=== PATIENT | female | born 1940 | race Caucasian/White ===

== ENCOUNTER 2018-05-25 01:06 | Inpatient (IN) ==
[2018-05-25] MEDS ORDERED: Acetaminophen 500 MG Tablet PO ONE (01:30)
[2018-05-25] MEDS ORDERED: Sod Chloride 0.9% Inj 1,000 ML IV.CONT SCH (01:30)
[2018-05-25 01:42] LABS: Baso # (Auto) 0.1 th/mm3 (0.0-0.2); Baso % (Auto) 1.1 % (0.0-2.0); Eos # (Auto) 0.2 th/mm3 (0.0-0.4); Eos % (Auto) 1.8 % (0.0-4.0); Hematocrit 40.2 % (35.0-46.0); Hemoglobin 13.3 gm/dL (11.6-15.3); Lymph # (Auto) 1.5 th/mm3 (1.0-4.8); Lymph % (Auto) 16.8 % (9.0-44.0); Mean Corpuscular Hemoglobin 31.9 pg (27.0-34.0); Mean Corpuscular Volume 96.9 fL (80.0-100.0); Mean Platelet Volume 10.2 fL (7.0-11.0); Mono # (Auto) 0.5 th/mm3 (0.0-0.9); Mono % (Auto) 5.2 % (0.0-8.0); Neut # (Auto) 6.5 th/mm3 (1.8-7.7); Neut % (Auto) 75.1 % (16.0-70.0); Platelet Count 125 th/mm3 (150-450); Red Blood Count 4.15 mil/mm3 (4.00-5.30); Red Cell Distribution Width 14.9 % (11.6-17.2); White Blood Count 8.8 th/mm3 (4.0-11.0)
[2018-05-25 01:48] LABS: Chloride 106 meq/L (98-107); Potassium 4.2 meq/L (3.5-5.1); Sodium 140 meq/L (136-145)
--- NOTE | 2018-05-25 01:51 | XR ---
EXAM DATE: 05/25/2018 1:29 AM EDT AGE/SEX: 78 years / Female INDICATIONS: Cough with chest pain. CLINICAL DATA: This is the patient's initial encounter. Patient reports that signs and symptoms have been present for 1 day and indicates a pain score of 7/10. MEDICAL/SURGICAL HISTORY: None. None. COMPARISON: No prior exams available for comparison. FINDINGS: The heart size is within normal limits. The lungs appear hyperinflated. A focal consolidation is not seen. No effusion is seen. The hilar structures appear prominent. This could be secondary to pulmonar y hypertension. CONCLUSION: No acute abnormality is seen. The lungs are hyperinflated. Electronically signed by: Delroy Mancini MD 05/25/2018 1:49 AM EDT
[2018-05-25 01:52] LABS: Albumin 3.6 g/dL (3.4-5.0); Anion Gap 7 meq/L (5-15); Calcium 8.3 mg/dL (8.5-10.1); Carbon Dioxide 27.4 meq/L (21.0-32.0); Glucose,Random 101 mg/dL (74-106); Magnesium 2.1 mg/dL (1.5-2.5); Prothrombin Time 10.1 sec (9.8-11.6)
[2018-05-25 01:53] LABS: Blood Urea Nitrogen 20 mg/dL (7-18)
[2018-05-25 01:56] LABS: Alanine Aminotransferase 23 U/L (10-53); Aspartate Aminotransferase 29 U/L (15-37); Glomerular Filtration Rate 70 mL/min (>89)
[2018-05-25 01:57] LABS: Total Protein 6.9 g/dL (6.4-8.2)
[2018-05-25 01:58] LABS: Activated Partial Thrombo Time 21.1 sec (24.3-30.1); Alkaline Phosphatase 94 U/L (45-117)
[2018-05-25] MEDS ORDERED: Sodium Chlor 0.9% Inj 250 ML IV.SIG SCH (02:00)
[2018-05-25 02:01] LABS: Troponin I 0.03 ng/mL (0.02-0.05)
--- NOTE | 2018-05-25 02:01 | ED ---
HPI General Chief Complaint: Chest Pain Stated Complaint: chest pain/coughing all day Time Seen by Provider: 05/25/18 03:39 Source: patient and family (grand daughter -DANIELITO/PRIMO Fong) Mode of arrival: ambulatory Limitations: no limitations History of Present Illness HPI narrative: 78-year-old female presents to the emergency department by private transportation the care of her granddaughter who is her healthcare surrogate and power of trust and estates attorney for evaluation of retrosternal chest pain radiating into her back. Patient has had similar chest pain in the past and has taken nitroglycerin with symptom relief. Patient is followed by cardiology in [place] Dr. Paulino. Patient has undergone cardiac catheterization in the past as recently reportedly is approximately 1 year ago at [facility] altered month at which time she was not considered a procedural or surgical candidate. Patient also has history of thoracic aortic aneurysm which is to the patient and granddaughters understanding not surgical he amenable. Patient also has history of COPD/emphysema. Patient states symptoms began on Thursday as a persistent dry nonproductive cough without associated fever or chills. Chest pain has developed after repetitive forceful coughing. Patient has osteoporosis and rheumatoid arthritis. Patient has pain with movement as well as pain with resting supine. No upper extremity or lower extremity numbness tingling or weakness. Patient denies history of myocardial infarction, hypertension, dyslipidemia, or diabetes; but reports she does not know her history well, reports atrial fibrillation "sounds familiar". Granddaughter reports history of cardiac disease valvular heart disease thoracic aortic aneurysm rheumatoid arthritis dyslipidemia and GERD. No recent long distance travel protracted bedrest. No recent known trauma other than forceful coughing. Patient has prescription for nitroglycerin but did not take any nitroglycerin for her complaint of chest pain at home prior to arrival to the emergency department or since Thursday. Patient does not use supplemental oxygen for her history of COPD/emphysema. Patient recently moved to the area from [place]. complaint: Reports chest pain STEMI Alert: No Onset (ago): day(s) Duration: intermittent and progressively worsening Onset: during exertion (post tussive) Pain location: Reports substernal Severity: severe Severity scale (1-10): 8 Quality: Reports tightness, aching and dull; Denies similar to prior NV Pain radiation: Reports back Relieving factors: nothing (has taken nothing) Exacerbating factors: exertion and other (cough) Context: Denies recent illness, recent surgery, recent immobilization, recent travel, trauma/injury, new medications and history of DVT/PE Associated symptoms: Reports nausea, dyspnea and cough; Denies vomiting, diaphoresis, sense of impending doom, syncope, palpitations, fever and leg swelling Treatments prior to arrival chest pain: Reports none Related Data On Oral Contraceptives: No Home Medications Medication Instructions Recorded Confirmed atorvastatin 20 mg PO DAILY 05/25/18 05/25/18 diltiazem HCl 60 mg PO Q12H 05/25/18 05/25/18 furosemide [Lasix] 20 mg PO DAILY 05/25/18 05/25/18 methotrexate sodium 2.5 mg PO 05/25/18 prednisone 2.5 mg PO DAILY 05/25/18 05/25/18 ranitidine HCl 150 mg PO DAILY 05/25/18 05/25/18 Allergies Allergy/AdvReac Type Severity Reaction Status Date / Time codeine AdvReac Nausea/Vomi Verified 05/25/18 02:03 ting Review of Systems ROS: all other systems reviewed are negative PMFSH History History Provided By: Family Member (Granddaughter thoracic aortic aneurysm) Medical History Medical History Arthritis (Acute) COPD (chronic obstructive pulmonary disease) (Acute) Surgical History Surgical History Hx of appendectomy (Acute) Hx of cholecystectomy (Acute) Hx of tonsillectomy (Acute) Social History Social History Substance History: No History of Abuse Second Hand Smoke Exposure: No Smoking Status: Former smoker Tobacco Type: Cigarettes How Often Do You Have a Drink Containing Alcohol: Never Recent Travel in [facility] within the Last 8 Weeks: No Recent Out of Country Travel within the Last 8 Weeks: No Exam Narrative Exam Narrative: GENERAL: Well-nourished, well-developed patient demonstrating mild work of breathing with O2 saturation 95% on room air. SKIN: Focused skin assessment warm/dry. HEAD: Normocephalic. EYES: No scleral icterus. No injection or drainage. NECK: Supple, trachea midline. No JVD or lymphadenopathy. CARDIOVASCULAR: increased Regular rate and rhythm without murmurs, gallops, or rubs. RESPIRATORY: Breath sounds equal bilaterally few rhonchi no expiratory wheeze no rales occasional accessory muscle use. GASTROINTESTINAL: Abdomen soft, non-tender, nondistended. MUSCULOSKELETAL: No cyanosis, or edema. Radial arterial pulses dorsalis pedis arterial pulses 2+ to palpation. BACK: Nontender without obvious deformity. No CVA tenderness. Course Initial Documented Vital Signs Temperature 98.9 F 05/25/18 01:12 Pulse Rate 106 H 05/25/18 01:12 Respiratory Rate 24 05/25/18 01:12 Blood Pressure 121/71 05/25/18 01:12 Pulse Oximetry 95 05/25/18 01:12 Last Documented Vital Signs Temperature 98.9 F 05/25/18 01:12 Pulse Rate 92 H 05/25/18 04:45 Respiratory Rate 16 05/25/18 04:45 Blood Pressure 117/68 05/25/18 04:45 Pulse Oximetry 99 05/25/18 04:19 Medical Decision Making MDM Narrative Medical decision making narrative: 78-year-old female presents to the emergency department by private transportation for evaluation of chest pain with cough and shortness of breath onset since Thursday with worsening symptoms since 4 PM today. Patient has history of chest pain managed with nitroglycerin. Patient states she did not take nitroglycerin today. Due to increasing pain decided to come to the emergency room. Patient's granddaughter who is the healthcare surrogate and power of trust and estates attorney is at bedside reports patient does have an inoperable ascending thoracic aortic aneurysm. Patient's last procedural intervention by cardiology or vascular or cardiothoracic surgery was approxi-1 year ago at which time she underwent a cardiac catheterization at [facility] time on [facility]. Patient placed on cardiac nurse IV access obtained specimens collected and sent for resulting patient ordered aspirin 162 mg by mouth and 1 sublingual nitroglycerin. Medical records requested. Patient administered SL NTG x 3 (@1 q 5 min)with minimal CP relief 03/12 down to 02/09; patient administered zofran 4 mg iv and morphine sulfate 2mg IV oredered administered at 1 mg IV increments; troponin I 0.03, CK 42, BNP 1102; O2 sat 2L/ M 97% CTA thoracic and abdominal aorta; upon return additional dose morphine sulfate 2 mg IV administered for chest pain and back pain; cxr: copd changes cardiomegaly no lobar infiltrate Patient with chest pain x 2 days w increased sx since 1600 now with cp unresponsive to SL NTG and MS receiving supplemental O2 Lasix and aspirin. CTA pending nitropaste applied to chest wall EKG nsr lvh by voltage and lateral ischemia abnormality, age indeterminate septal QS. @ 4AM CTA thoracic and abdominal aorta resulted by reading radiologist patient does have an ascending aorta aneurysm 4.3 cm no evidence of leak or dissection multiple areas of vessel calcification and coronary vessel calcification. Patient resting comfortably talking with her granddaughter in no apparent distress when queried as to intensity of pain patient states her discomfort is ' better' 6/10 in intensity has chronic pain syndrome with chronic pain 4-5/10 = "mild" in intensity at all times associated with chronic rheumatoid arthritis. Pain is from the right shoulder to the right mid chest. Pain is unaffected by position or deep inspiratory effort. It is now 3 hours will obtain second set of cardiac enzymes and EKG in view of patient's history patient presents with concern for acute coronary syndrome. Patient will be admitted to medicine service with ongoing aspirin therapy nitroglycerin therapy and initiation of heparinization. No complaint of dyspnea. Call placed to medicine service for admission. Medical Screen Exam Complete: Yes Emergency Medical Condition: Yes Differential Diagnosis Differential Diagnosis: Chest pain, ACS, NV, aortic dissection, aortic aneurysm , PE, pneumonia; unlikely pneumothorax Medical Records no prior visits Lab Data Lab results reviewed: Yes I reviewed the patient's lab results. Result diagrams: 05/25/18 01:30 05/25/18 01:30 Lab Results 05/25/18 05/25/18 05/25/18 Range/Units 01:30 01:30 01:30 CBC w Diff Auto diff final WBC 8.8 (4.0-11.0) th/mm3 RBC 4.15 (4.00-5.30) mil/mm3 Hgb 13.3 (11.6-15.3) gm/dL Hct 40.2 (35.0-46.0) % MCV 96.9 (80.0-100.0) fL MCH 31.9 (27.0-34.0) pg MCHC 33.0 (32.0-36.0) % RDW 14.9 (11.6-17.2) % Plt Count 125 L (150-450) th/mm3 MPV 10.2 (7.0-11.0) fL Neut % (Auto) 75.1 H (16.0-70.0) % Lymph % (Auto) 16.8 (9.0-44.0) % Benson % (Auto) 5.2 (0.0-8.0) % Eos % (Auto) 1.8 (0.0-4.0) % Baso % (Auto) 1.1 (0.0-2.0) % Neut # (Auto) 6.5 (1.8-7.7) th/mm3 Lymph # (Auto) 1.5 (1.0-4.8) th/mm3 Benson # (Auto) 0.5 (0.0-0.9) th/mm3 Eos # (Auto) 0.2 (0.0-0.4) th/mm3 Baso # (Auto) 0.1 (0.0-0.2) th/mm3 WBC Differential . Differential Comment . PT 10.1 (9.8-11.6) sec INR 1.0 Ratio APTT 21.1 L (24.3-30.1) sec Sodium (136-145) meq/L Potassium (3.5-5.1) meq/L Chloride (98-107) meq/L Carbon Dioxide (21.0-32.0) meq/L Anion Gap (5-15) meq/L BUN (7-18) mg/dL Creatinine (0.50-1.00) mg/dL Estimated GFR (>89) mL/min Random Glucose (74-106) mg/dL Calcium (8.5-10.1) mg/dL Magnesium (1.5-2.5) mg/dL Total Bilirubin (0.2-1.0) mg/dL AST (15-37) U/L ALT (10-53) U/L Alkaline Phosphatase (45-117) U/L Total Creatine Kinase (26-192) U/L Troponin I (0.02-0.05) ng/mL B-Natriuretic Peptide 1102 H (0-100) pg/mL Total Protein (6.4-8.2) g/dL Albumin (3.4-5.0) g/dL 05/25/18 05/25/18 Range/Units 01:30 04:20 CBC w Diff WBC (4.0-11.0) th/mm3 RBC (4.00-5.30) mil/mm3 Hgb (11.6-15.3) gm/dL Hct (35.0-46.0) % MCV (80.0-100.0) fL MCH (27.0-34.0) pg MCHC (32.0-36.0) % RDW (11.6-17.2) % Plt Count (150-450) th/mm3 MPV (7.0-11.0) fL Neut % (Auto) (16.0-70.0) % Lymph % (Auto) (9.0-44.0) % Benson % (Auto) (0.0-8.0) % Eos % (Auto) (0.0-4.0) % Baso % (Auto) (0.0-2.0) % Neut # (Auto) (1.8-7.7) th/mm3 Lymph # (Auto) (1.0-4.8) th/mm3 Benson # (Auto) (0.0-0.9) th/mm3 Eos # (Auto) (0.0-0.4) th/mm3 Baso # (Auto) (0.0-0.2) th/mm3 WBC Differential Differential Comment PT (9.8-11.6) sec INR Ratio APTT (24.3-30.1) sec Sodium 140 (136-145) meq/L Potassium 4.2 (3.5-5.1) meq/L Chloride 106 (98-107) meq/L Carbon Dioxide 27.4 (21.0-32.0) meq/L Anion Gap 7 (5-15) meq/L BUN 20 H (7-18) mg/dL Creatinine 0.80 (0.50-1.00) mg/dL Estimated GFR 70 L (>89) mL/min Random Glucose 101 (74-106) mg/dL Calcium 8.3 L (8.5-10.1) mg/dL Magnesium 2.1 (1.5-2.5) mg/dL Total Bilirubin 1.0 (0.2-1.0) mg/dL AST 29 (15-37) U/L ALT 23 (10-53) U/L Alkaline Phosphatase 94 (45-117) U/L Total Creatine Kinase 42 36 (26-192) U/L Troponin I 0.03 0.03 (0.02-0.05) ng/mL B-Natriuretic Peptide (0-100) pg/mL Total Protein 6.9 (6.4-8.2) g/dL Albumin 3.6 (3.4-5.0) g/dL Imaging Data Radiologist's impression: Chest X-Ray 05/25/18 01:29 CONCLUSION: No acute abnormality is seen. The lungs are hyperinflated. Thoracic Aorta CT 05/25/18 02:07 CONCLUSION: 1. Scattered atherosclerotic calcification seen throughout. There is a 4.3 cm aneurysm of the ascending aorta. No dissection is seen. 2. There are prominent pectus excavatum deformity deforming the chest and displacing the heart to the left. 3. Calcified masses in the right lung. The likely from granulomatous exposure. 4. Dilatation the biliary system which may reflect a reservoir phenomenon following cholecystectomy. 5. Dilatation of pancreatic duct. Because this is not known. It is likely long- standing as there does appear to be some atrophy of the pancreas. 6. Dilatation the renal collecting systems bilaterally being more prominent on the right to the level the UPJs which could suggest underlying UPJ type obstruction. There is no delayed enhancement of the kidneys. No renal stones are seen. 7. Scattered colonic diverticula. ECG Data EKG Prior to Arrival: No Prior ECG tracings: not available for review Interpretation: EKG normal sinus rhythm rate 93 marked LVH by voltage criterion and ischemic changes laterally with QS septally age-indeterminate interventricular conduction delay, QS laterally age-indeterminate, no acute ST elevation Discharge Plan Discharge Disposition Patient Disposition: 30 Still Patient Discharge Condition Condition: Stable Discharge Details Diagnosis: ACS (acute coronary syndrome), COPD (chronic obstructive pulmonary disease), Elevated brain natriuretic peptide (BNP) level, Thoracic aortic aneurysm without rupture Physicians Team ED Provider: Lisa Perez Primary Care Provider: Donovan Burnette Attending Provider: Shanice Hamilton Other Providers: Yovany Elliott Status ED Status: Admitted Patient
[2018-05-25 02:05] LABS: Creatine Kinase 42 U/L (26-192)
[2018-05-25] MEDS ORDERED: Morphine Inj 4 MG/ML Vial IV.PUSH ONE ×2 (02:07→02:50)
--- NOTE | 2018-05-25 03:56 | CT ---
EXAM DATE: 05/25/2018 2:11 AM EDT AGE/SEX: 78 years / Female INDICATIONS: Cough. Chest pain. Evaluate for dissection. CLINICAL DATA: This is the patient's initial encounter. Patient reports that signs and symptoms have been present for 1 day and indicates a pain score of 9/10. MEDICAL/SURGICAL HISTORY: Chronic obstructive pulmonary disease. Appendectomy. Cholecystectomy. RADIATION DOSE: 6.72 CTDI (mGy) COMPARISON: No prior exams available for comparison. TECHNIQUE: Volumetric scanning was performed using a multi-row detector CT scanner during bolus infu ry of 100 ml Omnipaque 350 (iohexol) nonionic water-soluble contrast as a single exam dose. The d josey was post processed with a variety of visualization algorithms including full volume maximum inten sity projection, multi-planar sliding thin slab reformation, curved planar reformation, and surface r endering techniques. Using automated exposure control and adjustment of the mA and/or kV according t o patient size, radiation dose was kept as low as reasonably achievable to obtain optimal diagnostic quality images. DICOM format image data is available electronically for review and comparison. FINDINGS: Lungs: There is a very mild pectus excavatum deformity. This displaces the heart to the left. There is a 2.4 cm calcified mass seen in the posterior medial right lower lung. There is a smaller calcifie d granuloma in the lateral right base. There are scattered areas of linear suspected atelectasis at [facility] lung bases. Mediastinum: No abnormally enlarged lymph nodes by CT criteria. No axillary or hilar abnormalities a re identified. Abdomen: The liver and spleen are free of focal defects. The spleen is heterogeneous secondary to th e phase of contrast enhancement. The gallbladder is absent. There is dilatation of the central intrah epatic biliary ducts and common bile duct and common bile duct measuring 1.1 cm. The pancreatic duct is dilated measuring 7 mm. There appears to be atrophy of the pancreas around the dilated pancreatic duct. The adrenal glands are normal. There are renal cysts seen bilaterally. There is dilatation of t right collecting system down to the level the UPJ. The ureter does not appear distended. There is fullness of the left collecting system to the level the renal pelvis. Left ureter is not dilated. The re are colonic diverticula especially in the sigmoid region. No free fluid or abdominal masses are id entified. No para-aortic adenopathy is seen. Pelvis: No evidence of free fluid or pelvic mass. No abnormally enlarged inguinal or retroperitoneal lymph nodes are present. The bladder is unremarkable. Thoracic Aorta: Scattered atherosclerotic calcifications are present. There is aneurysmal dilatation of the ascending aorta measuring up to 4.3 cm. The aortic arch and the descending thoracic aorta are normal in size. Mild calcifications are seen at the origins of the great vessels without significant stenosis. Coronary calcifications are present. Abdominal Aorta: There are scattered atherosclerotic calcifications seen. Solitary renal arteries ar e seen bilaterally. Celiac, SMA and LASHAY are patent. No abdominal aortic aneurysm is present. Pelvic Vessels: There are scattered atherosclerotic calcifications seen. The common iliac, internal iliac, external iliac and common femoral arteries are all patent. CONCLUSION: 1. Scattered atherosclerotic calcification seen throughout. There is a 4.3 cm aneurysm of the ascend ing aorta. No dissection is seen. 2. There are prominent pectus excavatum deformity deforming the chest and displacing the heart to th e left. 3. Calcified masses in the right lung. The likely from granulomatous exposure. 4. Dilatation the biliary system which may reflect a reservoir phenomenon following cholecystectomy. 5. Dilatation of pancreatic duct. Because this is not known. It is likely long-standing as there berry s appear to be some atrophy of the pancreas. 6. Dilatation the renal collecting systems bilaterally being more prominent on the right to the leve l the UPJs which could suggest underlying UPJ type obstruction. There is no delayed enhancement of th e kidneys. No renal stones are seen. 7. Scattered colonic diverticula. Electronically signed by: Delroy Mancini MD 05/25/2018 3:54 AM EDT
[2018-05-25] MEDS ORDERED: Acetaminophen 325 MG Tablet PO PRN (04:24)
[2018-05-25] MEDS ORDERED: Bisacodyl 10 MG Supp RECTAL PRN (04:24)
[2018-05-25] MEDS ORDERED: Heparin Drip 25,000 UNIT/250 ML BAG IV.CONT PRN (04:46)
[2018-05-25] MEDS ORDERED: Heparin 10,000 UNITS/10 ML Vial (for IV use) IV.PUSH STA (04:46)
[2018-05-25 04:57] LABS: Troponin I 0.03 ng/mL (0.02-0.05)
[2018-05-25] MEDS ORDERED: Heparin - SQ 10,000 UNITS/ML Vial SQ SCH (05:00)
[2018-05-25] MEDS: dilTIAZem 60 MG Tablet PO SCH ×2 (05:17→18:36)
[2018-05-25 06:38] LABS: Hemoglobin 11.6 gm/dL (11.6-15.3); Mean Corpuscular Volume 96.8 fL (80.0-100.0); Mean Platelet Volume 10.3 fL (7.0-11.0); Platelet Count 113 th/mm3 (150-450); Red Blood Count 3.62 mil/mm3 (4.00-5.30); Red Cell Distribution Width 14.4 % (11.6-17.2); White Blood Count 7.6 th/mm3 (4.0-11.0)
[2018-05-25 06:57] LABS: Troponin I 0.04 ng/mL (0.02-0.05)
--- NOTE | 2018-05-25 07:56 | P.CONCA ---
History of Present Illness Primary Care Provider: Donovan Burnette MD History of Present Illness: 78-year-old female with a past medical history of mild to moderate CAD, moderate severe MR, HTN, COPD who presented with chest pain. The patient states prior to yesterday she was feeling well, but developed a bad cough yesterday. After coughing she developed chest discomfort that lasted all day yesterday. She states her chest continues to feel sore, but much improved. Her chest wall is tender to touch. She quit smoking 2 years ago. Her EKG shows NSR, LVH criteria, IVCD, lateral ST/T wave changes, no previous EKG for comparison. Troponin 0.03, 0.03, 0.04. A chest CTA showed a 4.3 cm ascending thoracic aortic aneurysm. Patient does have records from prior hospitalization in January 2017 from [facility] in [place] with admitted for pneumonia. She had cardiac workup at that time. She was found to have moderate to severe MR, LVH, EF 65-70%. She had [facility] at that time that showed 40% mid RCA stenosis, 40% mid LAD stenosis, 30 -40% first diagonal branch stenosis, 20-30% left circumflex complaints stenosis. Review of Systems All other systems reviewed negative except as stated in HPI [facility] - History History Provided By: Patient, Family Member (Granddaughter thoracic aortic aneurysm), Medical Record - Medical History Medical History: Medical History (Last Updated 05/25/18 @ 07:51 by MAGUI Grant) Aortic aneurysm Arthritis CAD (coronary artery disease) COPD (chronic obstructive pulmonary disease) HTN (hypertension) Mitral regurgitation - Surgical History Surgical History: Surgical History (Last Reviewed 05/25/18 @ 07:55 by Keon Parker) Hx of appendectomy Hx of cholecystectomy Hx of tonsillectomy - Tobacco History Second Hand Smoke Exposure: No Tobacco Use In Past 30 Days: No Smoking Status: Former smoker Tobacco Type: Cigarettes - Alcohol History How Often Do You Have a Drink Containing Alcohol: Never - Substance Use History Substance History: No History of Abuse - Travel History Recent Travel in the [facility] Within the Last 8 Weeks: No Recent Travel Out of the Country Within the Last 8 Weeks: No - Immunization History Tetanus Immunization: Unsure Medications and Allergies Allergies Allergy/AdvReac Type Severity Reaction Status Date / Time codeine AdvReac Nausea/Vomi Verified 05/25/18 02:03 ting Home Medications Medication Instructions Recorded Confirmed Type aspirin 81 mg PO DAILY 05/25/18 05/25/18 History atorvastatin 20 mg PO DAILY 05/25/18 05/25/18 History diltiazem HCl 60 mg PO Q12H 05/25/18 05/25/18 History furosemide [Lasix] 20 mg PO DAILY 05/25/18 05/25/18 History methotrexate sodium 2.5 mg PO 05/25/18 History prednisone 2.5 mg PO DAILY 05/25/18 05/25/18 History ranitidine HCl 150 mg PO DAILY 05/25/18 05/25/18 History Active Medications: Active Medications Acetaminophen (Tylenol) 650 mg PO Q4H PRN PRN Reason: Temp > 100.4 Al Hydroxide/Mg Hydroxide (Milk Of Magnesia Liq) 30 ml PO Q12H PRN PRN Reason: Mild Constipation Atorvastatin Calcium (Lipitor) 20 mg PO DAILY [facility] Bisacodyl (Dulcolax Supp) 10 mg RECTAL DAILY PRN PRN Reason: SEVERE CONSITIPATION Diltiazem HCl (Cardizem) 60 mg PO Q12H [facility] Last Admin: 05/25/18 05:17 Dose: 60 mg Furosemide (Lasix) 20 mg PO DAILY [facility] Heparin Sodium/Dextrose (Heparin/D5w 25,000 U/250 Ml) 25,000 unit in 250 mls @ 0 mls/hr IV.CONT TITRATE PRN; Protocol PRN Reason: Per Protocol Last Admin: 05/25/18 05:19 Dose: 600 units/hr, 6 mls/hr Lactulose (Lactulose Liq) 30 ml PO DAILY PRN PRN Reason: SEVERE CONSITIPATION Ondansetron HCl (Zofran Inj) 4 mg IV.PUSH Q6H PRN PRN Reason: NAUSEA OR VOMITING Prednisone (Deltasone) 2.5 mg PO DAILY [facility] Senna/Docusate Sodium (Shelbi-Colace) 1 tab PO BID [facility] Sennosides (Senokot) 17.2 mg PO Q12H PRN PRN Reason: Moderate Constipation Sodium Chloride (Ns Flush) 2 ml IV.FLUSH UNSCH PRN PRN Reason: FLUSH AFTER USING IV ACCESS Exam Vital signs: Vital Signs 05/25/18 01:12 05/25/18 01:30 05/25/18 01:45 Temperature 98.9 F Pulse Rate 106 H 106 H 105 H Respiratory Rate 24 16 Blood Pressure 121/71 108/74 Pulse Oximetry 95 96 96 05/25/18 01:50 05/25/18 01:55 05/25/18 02:00 Temperature Pulse Rate 103 H 104 H Respiratory Rate 16 16 Blood Pressure 126/71 112/72 Pulse Oximetry 96 98 05/25/18 02:05 05/25/18 02:34 05/25/18 02:40 Temperature Pulse Rate 108 H 95 H Respiratory Rate 16 16 16 Blood Pressure 123/69 123/66 Pulse Oximetry 05/25/18 02:45 05/25/18 04:19 05/25/18 04:45 Temperature Pulse Rate 96 H 94 H 92 H Respiratory Rate 16 16 16 Blood Pressure 119/66 108/69 117/68 Pulse Oximetry 99 05/25/18 05:15 05/25/18 05:52 05/25/18 06:34 Temperature Pulse Rate 90 100 H 90 Respiratory Rate 16 16 Blood Pressure 112/70 101/63 Pulse Oximetry 99 99 Intake & Output 05/24/18 05/25/18 05/25/18 18:59 06:59 18:59 Intake Total 70 / 70 Balance 70 / 70 Weight 106 lb Intake: IV 70 / 70 Narrative: GENERAL: Well-developed well-nourished. In no acute distress. NECK: No carotid bruits. No JVD. CARDIOVASCULAR: Regular rate and rhythm. 3/6 diastolic murmur appreciated at the lower left sternal border. Pectus excavatum. Chest wall pain to palpation. RESPIRATORY: No accessory muscle use. Clear to auscultation. Breath sounds equal bilaterally. MUSCULOSKELETAL: No clubbing or cyanosis. No edema. NEUROLOGICAL: Awake and alert. Normal speech. Results 05/25/18 06:30 05/25/18 01:30 Cardiac Enzymes 05/25/18 05/25/18 05/25/18 Range/Units 01:30 01:30 04:20 AST 29 (15-37) U/L Troponin I 0.03 0.03 (0.02-0.05) ng/mL B-Natriuretic Peptide 1102 H (0-100) pg/mL 05/25/18 Range/Units 06:30 AST (15-37) U/L Troponin I 0.04 (0.02-0.05) ng/mL B-Natriuretic Peptide (0-100) pg/mL Coagulation 05/25/18 05/25/18 Range/Units 01:30 01:30 PT 10.1 (9.8-11.6) sec APTT 21.1 L (24.3-30.1) sec B-Natriuretic Peptide 1102 H (0-100) pg/mL CBC 05/25/18 05/25/18 Range/Units 01:30 06:30 WBC 8.8 7.6 (4.0-11.0) th/mm3 RBC 4.15 3.62 L (4.00-5.30) mil/mm3 Hgb 13.3 11.6 (11.6-15.3) gm/dL Hct 40.2 35.0 (35.0-46.0) % Plt Count 125 L 113 L (150-450) th/mm3 Neut # (Auto) 6.5 (1.8-7.7) th/mm3 Lymph # (Auto) 1.5 (1.0-4.8) th/mm3 [place] # (Auto) 0.5 (0.0-0.9) th/mm3 Eos # (Auto) 0.2 (0.0-0.4) th/mm3 Baso # (Auto) 0.1 (0.0-0.2) th/mm3 Comprehensive Metabolic Panel 05/25/18 Range/Units 01:30 Sodium 140 (136-145) meq/L Potassium 4.2 (3.5-5.1) meq/L Chloride 106 (98-107) meq/L Carbon Dioxide 27.4 (21.0-32.0) meq/L BUN 20 H (7-18) mg/dL Creatinine 0.80 (0.50-1.00) mg/dL Calcium 8.3 L (8.5-10.1) mg/dL AST 29 (15-37) U/L ALT 23 (10-53) U/L Alkaline Phosphatase 94 (45-117) U/L Total Protein 6.9 (6.4-8.2) g/dL Albumin 3.6 (3.4-5.0) g/dL Intake and Output 05/24/18 05/25/18 05/25/18 22:59 06:59 14:59 Intake Total 70 / 70 Balance 70 / 70 Intake: IV 70 / 70 Other: Weight 106 lb - Imaging and Cardiology Imaging: Impressions Chest X-Ray 05/25/18 01:29 CONCLUSION: No acute abnormality is seen. The lungs are hyperinflated. Thoracic Aorta CT 05/25/18 02:07 CONCLUSION: 1. Scattered atherosclerotic calcification seen throughout. There is a 4.3 cm aneurysm of the ascending aorta. No dissection is seen. 2. There are prominent pectus excavatum deformity deforming the chest and displacing the heart to the left. 3. Calcified masses in the right lung. The likely from granulomatous exposure. 4. Dilatation the biliary system which may reflect a reservoir phenomenon following cholecystectomy. 5. Dilatation of pancreatic duct. Because this is not known. It is likely long- standing as there does appear to be some atrophy of the pancreas. 6. Dilatation the renal collecting systems bilaterally being more prominent on the right to the level the UPJs which could suggest underlying UPJ type obstruction. There is no delayed enhancement of the kidneys. No renal stones are seen. 7. Scattered colonic diverticula. Assessment and Plan - Plan 78-year-old female with a past medical history of mild to moderate CAD, moderate severe MR, HTN, COPD who presented with chest pain Chest pain: Seems more noncardiac, possibly pleuritic from coughing or musculoskeletal from costochondritis. Troponins normal, consider discontinuing heparin gtt. Continue aspirin and statin with history of CAD. Check echocardiogram with history of moderate to severe MR, may need left and right rotation for further valve workup, keep n.p.o. Discussed Condition With: Patient with daughter at bedside, RNDr. Shaikh - Attending Attestation unstable angina - chest pain. intermediate troponin. ischemic EKG. severe MR - prominent holosystolic murmur. + fatigue. + SOB. + symtomatic plan for [facility] this am plan for [facility] this am then make decision on potential management decision
[2018-05-25] MEDS ORDERED: predniSONE 5 MG Tablet PO SCH (09:00)
[2018-05-25] MEDS ORDERED: Metoprolol Tartrate 25 MG Tablet PO ONE (09:15)
[2018-05-25] MEDS ORDERED: Chlorhexidine Gluconate 2% 1 Pack (2 Cloths) TOPICAL ONE (09:15)
[2018-05-25] MEDS ORDERED: Sodium Chlor 0.9% Inj 500 ML IV.CONT ONE (09:15)
[2018-05-25] MEDS ORDERED: Heparin/NS PF Inj 1,000 ML ONE (10:35)
--- NOTE | 2018-05-25 10:36 | ECHRPT ---
Indication: CHEST PAIN, MR CONCLUSIONS Normal left ventricular size. Aaqqfnxh-hv-otlmji concentric left ventricular hypertrophy with mid cavitary obstruction due to hyperdynamic function. The left ventricular systolic function is normal with an estimated ejection fraction in the range of 60-65%. No regional wall motion abnormalities are present. Doppler parameters are consistent with impaired left ventricular relaxtion (grade 1 diastolic dysfun ction). The left atrial size is moderately dilated. Mild thickening of the mitral valve leaflets. Calcification of both mitral valve leaflets. Cwmcjkdv-yd-wiwvzx mitral valve regurgitation. Blunted (decreased) systolic pulmonary venous flow is noted which is consistent with hemodynamically significant mitral regurgiation. Mitral annular calcification is present. Mild thickening of the tricuspid valve leaflets. There is mild tricuspid valve regurgitation. Mild pulmonary valve regurgitation. Trileaflet aortic valve. Aortic valve sclerosis is present. Diffuse calcification of the aortic valve. Aium-hs-ylbpllfh aortic valve regurgitation. Eccentric aortic regurgitation jet directed at the mitral valve. No aortic valve stenosis. BP: / HR: Rhythm: Technical Quality: Medications Complications Proc. Components FINDINGS LEFT VENTRICLE Normal left ventricular size. Edbyrpin-dt-wokedw concentric left ventricular hypertrophy with mid cavitary obstruction due to hyperdynamic function. The left ventricular systolic function is normal with an estimated ejection fraction in the range of 60-65%. No regional wall motion abnormalities are present. Doppler parameters are consistent with impaired left ventricular relaxtion (grade 1 diastolic dysfun ction). RIGHT VENTRICLE Normal right ventricular size and systolic function. LEFT ATRIUM The left atrial size is moderately dilated. RIGHT ATRIUM The right atrial size is normal. ATRIAL APPENDAGES Normal left atrial appendage size with no evidence of thrombus formation. ATRIAL SEPTUM Normal atrial septal thickness without atrial level shunting by limited color doppler interrogation. AORTA The aortic root and proximal ascending aorta are normal in size on limited imaging. There is plaque seen in the transverse aorta. MITRAL VALVE Mild thickening of the mitral valve leaflets. Calcification of both mitral valve leaflets. Maonocsx-ax-djrtvx mitral valve regurgitation. Blunted (decreased) systolic pulmonary venous flow is noted which is consistent with hemodynamically significant mitral regurgiation. Mitral annular calcification is present. AORTIC VALVE Trileaflet aortic valve. Aortic valve sclerosis is present. Diffuse calcification of the aortic valve. Otat-xk-berrgfuw aortic valve regurgitation. Eccentric aortic regurgitation jet directed at the mitral valve. No aortic valve stenosis. TRICUSPID VALVE Mild thickening of the tricuspid valve leaflets. There is mild tricuspid valve regurgitation. VESSELS The inferior vena cava is normal in size. PULMONARY VALVE Mild pulmonary valve regurgitation. PERICADIUM No pericardial effusion. William Shaikh MD, FACC (Electronically Signed) Final Date:25 May 2018 10:35 Amended: 25 May 2018 11:22
[2018-05-25] MEDS ORDERED: fentaNYL Citrate Inj 100 MCG/2 ML Ampul ONE (10:51)
--- NOTE | 2018-05-25 11:25 | CATHPROC ---
[employer] HIS Report Study Information Study Number Admission Scheduled Start Study Start [id number] May 25 2018 4:24AM 05/25/2018 May 25 2018 10:27AM [place] Service Cardiac Catheterization Admit Source Facility Department Other [facility] - Adobe Layer Helper Physician and Clinical Staff Initial William Lin Country Singer Ryan Daley,RN Recorder Leeroy Mc,RAFAEL Recorder Student, VEST TAILOR/RT(R) Scrub Sorin Malone RCIS(BS) Procedures Performed Procedure Location (Site) Vessel Name Angiogram LV LV Ventricle Coronary Angiograms LCA Left Coronary Coronary Angiograms RCA Right Coronary Equipment Time Events Director Description Size Mfg Part Number Used/Scraped ARROW INTERNATIONAL CATHETER, FR.7 BALLOON [id number] 10:32 FR 7 Used INC. WEDGE PRESSURE *[id number] TRANSDUCER, TRDeNovaMedAVE [id number] 10:32 RUGGIERO RATLIFF * Used W/STOCKCOCK *[id number] 538-422 *[id number] 538-421 *[id number] 538-453S *[id number] 10:32 Dashlane BLANKET,WARM AIR CCL * Used *[id number] 10:32 Dashlane PACK, CCL CUSTOM * Used *[id number] 10:32 iStoryTime PACER PEN, SKIN DUAL W/ RULER * Used *[id number] 10:32 P2P-Next WIRE, 3MMJ .035 180CM 180CM Used *[id number] 10:32 NAMIC MANIFOLD, 2 PORT * Used *[id number] 10:32 NAMIC MANIFOLD, 4 PORT * Used *[id number] 10:32 NYCOMED OMNIPAQUE, 350 MG, 150ML 150ML [id number] Used [id number] 10:51 TERUMO MEDICAL SHEATH, FR4 TERUMO (10CM) FR 4 Used *[id number] 10:32 TERUMO MEDICAL SHEATH, FR7 TERUMO (10CM) FR 7 Used *[id number] History: Allergies Allergy Reaction No Known Allergies codeine Nausea/Vomiting History: Risk Factors Family History of Hypertension Dyslipidemia Previous TN Previous Heart Failure Premature CAD Yes No Yes No No Prior Valve Prior PCI Prior CABG Surgery No No No Cerebrovascular Peripheral Artery Chronic Lung On Dialysis Diabetes Disease Disease Disease No No No Yes No History: Stress Tests Stress or Imaging Studies Performed No History: Other Current Smoker Method Quit Packs a Day Years Used Pack Years No Cigarettes 3 Years Ago 1 25 25 Labs Hgb (g/dl) Hct (%) WBC (l/cumm) Platelets (thousands) 11.60-17.00 35.00-51.00 4.00-11.00 150.00-450.00 11.6 35 7.6 113 Glucose (mg/dl) BUN (mg/dl) Creatinine (mg/dl) BUN:Creatinine (1:x) 74.00-106.00 7.00-18.00 0.50-1.30 10.00-20.00 101 20 0.8 25 Na (meq/l) K (meq/l) 136.00-145.00 3.50-5.10 140 4.2 INR (PTT:PT) 0.90-1.10 1 Troponin I (ng/ml) CPK-MB (ng/ML) 0.02-0.05 0.50-3.60 0.04 Not Drawn Medication Medication Total Dose (Bolus/Oral) Medication Total Dosage/Unit 1% XYLOCAINE 10 mL FENTANYL 25 mcg Medications (Bolus/Oral) Medication Time Given Dosage/Unit Administered By Reason 05/25/2018 10:48:11 1% XYLOCAINE 10 mL William Shaikh AM 10 mL 1% XYLOCAINE given in lab by William Shaikh in Right Groin via Subcutaneous. Ordered by William Shaikh. 05/25/2018 10:52:57 FENTANYL 25 mcg Ryan Daley AM 25 mcg FENTANYL given in lab by Ryan Daley RN in Right Antecubital via Peripheral IV. Ordered by William Shaikh. Initial Case Assessment Cardiovascular Edema Present Skin color Skin None Normal Warm Dry Circulatory - Right Pulses Dorsalis Pedis Femoral 2 2 Scale (0,1,2,3,4,d) Circulatory - Left Pulses Dorsalis Pedis Femoral 2 2 Scale (0,1,2,3,4,d) Neurological State Oriented to time-place- Alert Moves all extremities person Final Case Assessment Cardiovascular HR NIBP 68 99/63 Edema Present Skin color Skin None Normal Warm Dry Circulatory - Right Pulses Dorsalis Pedis Femoral 2 2 Scale (0,1,2,3,4,d) Circulatory - Left Pulses Dorsalis Pedis Femoral 2 2 Scale (0,1,2,3,4,d) Neurological State Oriented to time-place- Alert Moves all extremities person Respiration - General Respiration Rate SpO2 (%) (B/min) 20 95 Chronological Log Time Study Chronological Log 10:28:19 Patient Name, D.O.B, / Armband Verified By R.N. 10:28:20 Patient arrived via Bed. 10:32:00 Patient has been NPO for More than 6Hrs. 10:32:01 Skin Breakdown- none per pt 10:32:14 Patient Warmer Placed on the Table. 10:32:15 [place] Prominences Protected Assessment: Initial Case, Edema=None, Color=Normal, Skin = Warm, Dry Right Pulses: Jose Ped=2, Femoral=2 10:32:19 Left Pulses: Jose Ped=2, Femoral=2 Neurological: State=Alert, Ox3, MCCLAIN 10:33:33 PIV R WRIST #22 w NS at O site WNL Vitals capture started with the following parameters, Patient=Adult, Interval=5 min, Initial Pr lpihbn=916 mmHg, 10:38:52 Deflation Rate=5 mmHg, Cuff placed on Left Arm 10:39:13 Bilateral groins prepped with 2% chlorhexidine, and draped after a 3 minute waiting time. 10:39:29 HR=66 bpm, NIBP=83/51 mmhg, SpO2=94.0 %, Resp=20 B/min, Pain=0, Hipolito=10, Funk=2 10:44:57 HR=63 bpm, NIBP=87/53 mmhg, SpO2=96.0 %, Resp=19 B/min, Pain=0, Hipolito=10, Funk=2 10:45:04 Pressure channel 1 zeroed. Time Out. Correct patient, correct procedure, correct physician, labs, allergies, and equipment verified with ammunition assembly ii laborer 10:47:32 team present. Fire risk assesment completed (see hard stop sheet for coding). Time Out Conc urred by MD and individual staff in procedure. 10:48:10 Case Start 10:48:11 10 mL 1% XYLOCAINE given in lab by William Shaikh in Right Groin via Subcutaneous. Ordered by William Shaikh. 10:49:17 HR=67 bpm, NIBP=90/56 mmhg, SpO2=93.0 %, Resp=15 B/min, Pain=0, Hipolito=10, Funk=2 10:50:16 Access site was Right Femoral Artery. 10:50:22 A SHEATH, FR4 TERUMO (10CM) FR 4 was advanced into the Fem Art (right) using the Percutaneo us technique. 10:52:57 25 mcg FENTANYL given in lab by Ryan Daley, RN in Right Antecubital via Peripheral IV. O rdered by William Shaikh. 10:53:05 Access site was Right Femoral Vein. 10:53:17 A SHEATH, FR7 TERUMO (10CM) FR 7 was advanced into the Fem Vein (right) using the Percutane ous technique. A CATHETER, FR.7 BALLOON WEDGE PRESSURE FR 7 was advanced over a wire. OMNIPAQUE, 350 MG, 150ML 150ML 10:53:44 was used for injections. 10:54:18 HR=65 bpm, NIBP=92/54 mmhg, SpO2=95.0 %, Resp=24 B/min, Pain=0, Hipolito=10, Funk=2 Recorded Pressure: RA, HR=66, Condition=Condition 1 10:54:24 (Right Atrium) RA 17/15/15 10:55:19 Pressure channel 1 zeroed. Recorded Pressure: RV, HR=67, Condition=Condition 1 10:55:57 (Right Ventricle) RV 43/7/13 Recorded Pressure: PCW, HR=69, Condition=Condition 1 10:57:06 (Pulmonary Capillary Wedge) PCW 38/41/27 10:57:19 Saturation: Site=Ao (Aorta) , O2=89.7 %, Hgb=11.6 gm/dl, Condition=Condition 1. Used in chace culation. 10:57:55 Saturation: Site=PA (Pulmonary Artery) , O2=52.7 %, Hgb=11.6 gm/dl, Condition=Condition 1. Used in calculation. 10:58:12 [place] Rob[place] Catheter Removed 10:59:19 HR=67 bpm, NIBP=97/60 mmhg, SpO2=89.0 %, Resp=26 B/min, Pain=0, Hipolito=10, Funk=2 A JL 5.0 INFINITI CATHETER FR 4 was advanced over a wire. OMNIPAQUE, 350 MG, 150ML 150ML was us ed for 10:59:58 injections. 11:00:31 The LCA was injected and visualized at various angles. OMNIPAQUE, 350 MG, 150ML 150ML used . After removing the current catheter a JR 4.0 INFINITI CATHETER FR 4 was advanced over a WIRE, 3 MMJ .035 180CM 11:01:28 180CM. 11:02:59 The RCA was injected and visualized at various angles. OMNIPAQUE, 350 MG, 150ML 150ML used . After removing the current catheter a PIGTAIL ANG. INFINITI CATHETER FR 4 was advanced over a [place], 3MMJ .035 11:04:04 180CM 180CM. 11:04:20 HR=69 bpm, NIBP=93/59 mmhg, SpO2=93.0 %, Resp=23 B/min, Pain=0, Hipolito=10, Funk=2 Recorded Pressure: LV, HR=93, Condition=Condition 1 11:07:30 (Left Ventricle) LV 151/24/40 11:09:22 HR=71 bpm, NIBP=94/51 mmhg, SpO2=93.0 %, Resp=25 B/min, Pain=0, Hipolito=10, Funk=2 11:09:32 The LV was injected at 12 cc/sec for a total of 36. OMNIPAQUE, 350 MG, 150ML 150ML used. Recorded Pressure: LV, Ao, VH=182, Condition=Condition 1 11:10:35 (Left Ventricle) LV 152/43/57, (Aorta) Ao 87/57/73 11:11:29 Wire removed 11:11:30 Catheter was removed 11:11:33 Case End (Physician broke scrub) 11:11:42 Catheter(s) removed without difficulty 11:12:45 Sheath removed; pressure applied to access site. 11:12:58 No case complications noted. 11:12:59 Cine recording checked. 11:13:02 Bedside Report will be given. 11:13:08 A Left and Right Heart Cath was performed. 11:14:21 HR=68 bpm, NIBP=99/63 mmhg, SpO2=93.0 %, Resp=27 B/min, Pain=0, Hipolito=10, Funk=2 Assessment: Final Case, HR=68 BPM, NIBP=99/63 mmhg, Edema=None, Color=Normal, Skin = Warm, Dry Right Pulses: Jose Ped=2, Femoral=2 11:14:31 Left Pulses: Jose Ped=2, Femoral=2 Neurological: State=Alert, Ox3, MCCLAIN Respiration: Resp=20 B/min, SpO2=95 % 11:15:42 Venous Sheath removed; pressure applied to access site. 11:19:22 HR=67 bpm, NIBP=99/60 mmhg, SpO2=90.0 %, Resp=22 B/min, Pain=0, Hipolito=10, Funk=2 11:22:35 Vitals capture stopped. 11:25:10 [facility] - Contrast Media Used In Study Contrast Total Opened (mL) Total Used (mL) Total Wasted (mL) Omnipaque 100 100 0 End Study - Maximum Contrast Load Max Contrast Load (mL) 300.0 End Study - Radiation Exposure Fluoro Time (minutes) 6.0 End Study - Sheaths Sheaths Pulled By Sheath Hold Time (min) Sorin Malone End Study - Patient Disposition Complications Transferred To Interventional Outcome No Critical Care Bed No attempt made
[2018-05-25] MEDS ORDERED: Bacitracin Oint 0.9 GM Packet TOPICAL ONE (11:26)
[2018-05-25] MEDS ORDERED: Naloxone Inj 0.4 MG/ML Vial IV.PUSH PRN (11:32)
[2018-05-25] MEDS ORDERED: Morphine Sulfate Inj 2 MG/ML Vial IV.PUSH PRN (11:32)
[2018-05-25] MEDS ORDERED: Morphine Inj 4 MG/ML Vial IV.PUSH PRN ×3 (11:32)
--- NOTE | 2018-05-25 11:34 | P.HPIM ---
History of Present Illness Service: [facility] Primary Care Physician: Donovan Burnette MD Chief Complaint: CHEST PAIN History of Present Illness: Patient is a 78-year-old female who presented to the emergency department at [place] via private transport under the care of her granddaughter who is her healthcare surrogate and power of consumer attorney for evaluation of retrosternal chest pain radiating into her back. Patient had similar chest pain in the past and had taken nitroglycerin with symptom relief. Patient's primary wet press tender is Dr. Boo can [facility]. Patient previously undergone cardiac catheterization [facility]. Patient also has a known history of thoracic aortic aneurysm which is nonsurgical at this time. Has a history of COPD and emphysema also. Symptoms began on Thursday night persisted nonproductive cough without any associated fever chills had some chest pain after forceful coughing. Patient has history of osteoporosis and rheumatoid arthritis also. Has had pain with movement as well as pain with resting. Granddaughter report history of cardiac valvular heart disease as well as thoracic aortic aneurysm and rheumatoid arthritis and dyslipidemia and GERD. Denies any recent trauma other than coughing. Patient has nitroglycerin at home but did not take it for chest pain prior to arrival patient does not use oxygen at home for her COPD emphysema. Patient recently moved to the area from [facility]. Her chest pain was 8 out of 10 and was tightness and aching and dullness with intermittent and progressive worsening of the chest pain. Patient denies any recent illness, recent surgery, recent [place] home or new injury. Denies any new medications. Patient denies any history of DVT or pulmonary embolism. Has had some nausea on and off denies any dyspnea and some cough denies any vomiting denies any diaphoresis or impending doom denies any syncope or palpitation denies any fever or leg swelling denies any treatment prior to arrival. Has been seen by cardiology. Already had a HAYLEY, I believe which showed severe mitral valve issues. Troponins have remained negative here. Family history is unobtainable from the patient unfortunately Inpatient Certification: I certify that the inpatient services were ordered in accordance with Medicare regulations governing the order. This includes certification that hospital inpatient services are reasonable and necessary and in the case of services not specified as inpatient-only under 42 CFR 419.22(n), that they are appropriately provided as inpatient services in accordance to with the 2-midnight benchmark under 43 CFR 412.3(e) Estimated Total Length of Stay (Days): 2 Plans for Post Hospital Care: Not yet determined Review of Systems All other systems reviewed negative except as stated in [facility] - History History Provided By: Patient, Family Member (Granddaughter thoracic aortic aneurysm), Medical Record - Medical History Medical History: Medical History (Last Reviewed 05/25/18 @ 07:55 by Keon Parker) Aortic aneurysm Arthritis CAD (coronary artery disease) COPD (chronic obstructive pulmonary disease) HTN (hypertension) Mitral regurgitation - Surgical History Surgical History: Surgical History (Last Reviewed 05/25/18 @ 07:55 by Keon Parker) Hx of appendectomy Hx of cholecystectomy Hx of tonsillectomy - Social History I have reviewed the patient's Social History: Yes - Tobacco History Second Hand Smoke Exposure: No Tobacco Use In Past 30 Days: No Smoking Status: Former smoker Tobacco Type: Cigarettes - Alcohol History How Often Do You Have a Drink Containing Alcohol: Never - Substance Use History Substance History: No History of Abuse - Travel History History of Recent Travel: No Recent Travel in the [place] Within the Last 8 Weeks: No Recent Travel Out of the Country Within the Last 8 Weeks: No - Immunization History Tetanus Immunization: Unsure Medications and Allergies Active Medications: Active Medications Acetaminophen (Tylenol) 650 mg PO Q4H PRN PRN Reason: Temp > 100.4 Al Hydroxide/Mg Hydroxide (Milk Of Magnjez Liq) 30 ml PO Q12H PRN PRN Reason: Mild Constipation Atorvastatin Calcium (Lipitor) 20 mg PO DAILY [facility] Bisacodyl (Dulcolax Supp) 10 mg RECTAL DAILY PRN PRN Reason: SEVERE CONSITIPATION Diltiazem HCl (Cardizem) 60 mg PO Q12H [facility] Last Admin: 05/25/18 05:17 Dose: 60 mg Furosemide (Lasix) 20 mg PO DAILY [facility] Heparin Sodium/Dextrose (Heparin/D5w 25,000 U/250 Ml) 25,000 unit in 250 mls @ 0 mls/hr IV.CONT TITRATE PRN; Protocol PRN Reason: Per Protocol Last Titration: 05/25/18 07:45 Dose: 600 units/hr, 6 mls/hr Sodium Chloride (Ns Inj) 500 mls @ 30 mls/hr IV.CONT .[id number] Stop: 05/26/18 01:54 Lactulose (Lactulose Liq) 30 ml PO DAILY PRN PRN Reason: SEVERE CONSITIPATION Ondansetron HCl (Zofran Inj) 4 mg IV.PUSH Q6H PRN PRN Reason: NAUSEA OR VOMITING Prednisone (Deltasone) 2.5 mg PO DAILY [facility] Senna/Docusate Sodium (Shelbi-Colace) 1 tab PO BID [facility] Sennosides (Senokot) 17.2 mg PO Q12H PRN PRN Reason: Moderate Constipation Sodium Chloride (Ns Flush) 2 ml IV.FLUSH UNSCH PRN PRN Reason: FLUSH AFTER USING IV ACCESS Allergies Allergy/AdvReac Type Severity Reaction Status Date / Time codeine AdvReac Nausea/Vomi Verified 05/25/18 02:03 ting Home Medications Medication Instructions Recorded Confirmed Type aspirin 81 mg PO DAILY 05/25/18 05/25/18 History atorvastatin 20 mg PO DAILY 05/25/18 05/25/18 History diltiazem HCl 60 mg PO Q12H 05/25/18 05/25/18 History furosemide [Lasix] 20 mg PO DAILY 05/25/18 05/25/18 History methotrexate sodium 2.5 mg PO 05/25/18 History prednisone 2.5 mg PO DAILY 05/25/18 05/25/18 History ranitidine HCl 150 mg PO DAILY 05/25/18 05/25/18 History Exam Vital signs: Vital Signs 05/25/18 01:12 05/25/18 01:30 05/25/18 01:45 Temperature 98.9 F Pulse Rate 106 H 106 H 105 H Respiratory Rate 24 16 Blood Pressure 121/71 108/74 Pulse Oximetry 95 96 96 05/25/18 01:50 05/25/18 01:55 05/25/18 02:00 Temperature Pulse Rate 103 H 104 H Respiratory Rate 16 16 Blood Pressure 126/71 112/72 Pulse Oximetry 96 98 05/25/18 02:05 05/25/18 02:34 05/25/18 02:40 Temperature Pulse Rate 108 H 95 H Respiratory Rate 16 16 16 Blood Pressure 123/69 123/66 Pulse Oximetry 05/25/18 02:45 05/25/18 04:19 05/25/18 04:45 Temperature Pulse Rate 96 H 94 H 92 H Respiratory Rate 16 16 16 Blood Pressure 119/66 108/69 117/68 Pulse Oximetry 99 05/25/18 05:15 05/25/18 05:52 05/25/18 06:34 Temperature Pulse Rate 90 100 H 90 Respiratory Rate 16 16 Blood Pressure 112/70 101/63 Pulse Oximetry 99 99 05/25/18 07:40 Temperature Pulse Rate 92 H Respiratory Rate 16 Blood Pressure 108/65 Pulse Oximetry 98 Intake & Output 05/24/18 05/25/18 05/25/18 18:59 06:59 18:59 Intake Total 70 / 13.7 / 13.7 Balance 70 / 70 13.7 / 13.7 Weight 48.081 kg Intake: IV 70 / 70 13.7 / 13.7 Heparin/D5W 25,000 U/250 mL 25, 13.7 / 13.7 000 unit In 250 ml @ Per Protocol IV.CONT TITRATE PRN Rx #:[id number] Narrative: GENERAL: Awake and alert some confusion after just having propofol for her HAYLEY SKIN: Warm and dry. HEAD: Atraumatic. Normocephalic. EYES: Pupils equal and round. No scleral icterus. No injection or drainage. EOMI ENT: No nasal bleeding or discharge. Mucous membranes pink and moist. Tongue is midline NECK: Trachea midline. No JVD. Supple CARDIOVASCULAR: Regular rate and rhythm. 3 out of 6 systolic ejection murmur RESPIRATORY: No accessory muscle use. Clear to auscultation. Breath sounds equal bilaterally. GASTROINTESTINAL: Abdomen soft, non-tender, nondistended. Hepatic and splenic margins not palpable. MUSCULOSKELETAL: Extremities without clubbing, cyanosis, or edema. No obvious deformities. NEUROLOGICAL: Awake and alert. No obvious cranial nerve deficits. Motor grossly within normal limits. Five out of 5 muscle strength in the arms and legs. Normal speech. PSYCHIATRIC: INAppropriate mood and affect; insight and judgment ABnormal. Patient had recently had propofol Results - Labs CBC & Chem 7: 05/25/18 06:30 05/25/18 01:30 Labs: Short CBC 05/25/18 05/25/18 Range/Units 01:30 06:30 WBC 8.8 7.6 (4.0-11.0) th/mm3 Hgb 13.3 11.6 (11.6-15.3) gm/dL Hct 40.2 35.0 (35.0-46.0) % Plt Count 125 L 113 L (150-450) th/mm3 BMP 05/25/18 01:30 Sodium 140 Potassium 4.2 Chloride 106 Carbon Dioxide 27.4 BUN 20 H Creatinine 0.80 Calcium 8.3 L Cardiac Enzymes 05/25/18 05/25/18 05/25/18 Range/Units 01:30 04:20 06:30 Total Creatine Kinase 42 36 34 (26-192) U/L Troponin I 0.03 0.03 0.04 (0.02-0.05) ng/mL Liver Function 05/25/18 Range/Units 01:30 Total Bilirubin 1.0 (0.2-1.0) mg/dL AST 29 (15-37) U/L ALT 23 (10-53) U/L Alkaline Phosphatase 94 (45-117) U/L Albumin 3.6 (3.4-5.0) g/dL - Imaging Impressions Chest X-Ray 05/25/18 01:29 CONCLUSION: No acute abnormality is seen. The lungs are hyperinflated. Thoracic Aorta CT 05/25/18 02:07 CONCLUSION: 1. Scattered atherosclerotic calcification seen throughout. There is a 4.3 cm aneurysm of the ascending aorta. No dissection is seen. 2. There are prominent pectus excavatum deformity deforming the chest and displacing the heart to the left. 3. Calcified masses in the right lung. The likely from granulomatous exposure. 4. Dilatation the biliary system which may reflect a reservoir phenomenon following cholecystectomy. 5. Dilatation of pancreatic duct. Because this is not known. It is likely long- standing as there does appear to be some atrophy of the pancreas. 6. Dilatation the renal collecting systems bilaterally being more prominent on the right to the level the UPJs which could suggest underlying UPJ type obstruction. There is no delayed enhancement of the kidneys. No renal stones are seen. 7. Scattered colonic diverticula. Caprini VTE Risk Assessment Caprini VTE Risk Assessment: Moderate/High Risk (score >= 2) Caprini Risk Assessment Model: Point Value = 1 Point Value = 2 Point Value = 3 Point Value = 5 Age 41-60 Minor surgery BMI > 25 kg/m2 Swollen legs Varicose veins or History of unexplained or recurrent spontaneous Oral contraceptives or hormone replacement Sepsis (< 1 month) Serious lung disease, including pneumonia (< 1 month) Abnormal pulmonary function Acute myocardial infarction Congestive heart failure (< 1 month) History of inflammatory bowel disease Medical patient at bed rest Age 61-74 Arthroscopic surgery Major open surgery (> 45 min) Laparoscopic surgery (> 45 min) Malignancy Confined to bed (> 72 hours) Immobilizing plaster cast Central venous access Age >= 75 History of VTE Family history of VTE Factor V Leiden Prothrombin 20602A Lupus anticoagulant Anticardiolipin antibodies Elevated serum homocysteine Heparin-induced thrombocytopenia Other congenital or acquired thrombophilia Stroke (< 1 month) Elective arthroplasty Hip, pelvis, or leg fracture Acute spinal cord injury (< 1 month) Prophylaxis Regimen: Total Risk Factor Score Risk Level Prophylaxis Regimen 0-1 Low Early ambulation 2 Moderate Order ONE of the following: *Sequential Compression Device (SCD) *Heparin 5000 units SQ BID 3-4 Higher Order ONE of the following medications: *Heparin 5000 units SQ TID *Enoxaparin/Lovenox 40 mg SQ daily (WT < 150 kg, CrCl > 30 mL/min) *Enoxaparin/Lovenox 30 mg SQ daily (WT < 150 kg, CrCl > 10-29 mL/min) *Enoxaparin/Lovenox 30 mg SQ BID (WT < 150 kg, CrCl > 30 mL/min) AND/OR *Sequential Compression Device (SCD) 5 or more Highest Order ONE of the following medications: *Heparin 5000 units SQ TID (Preferred with Epidurals) *Enoxaparin/Lovenox 40 mg SQ daily (WT < 150 kg, CrCl > 30 mL/min) *Enoxaparin/Lovenox 30 mg SQ daily (WT < 150 kg, CrCl > 10-29 mL/min) *Enoxaparin/Lovenox 30 mg SQ BID (WT < 150 kg, CrCl > 30 mL/min) AND *Sequential Compression Device (SCD) Assessment and Plan - Plan Chest pain atypical versus typical To go for cardiac catheterization today Had previously undergone a HAYLEY already today regarding the mitral valve Troponins so far remain negative Severe mitral regurgitation-status post HAYLEY Scheduled for cardiac catheterization today-SP CARDIAC CATH- REPORT NOT AVAILABLE History of COPD Elevated BNP Chronic thoracic aortic aneurysm without rupture at 4.3 cm History of mild to moderate coronary artery disease and moderate severe MR and hypertension and COPD Hyperlipidemia continue on Lipitor Hypertension continue on diltiazem and Lasix Rheumatoid arthritis on chronic methotrexate and prednisone GERD on ranitidine daily Cardiovascular surgery has been consulted for evaluation of the severe mitral regurgitation DW [facility] DR LIN- NEEDS TO BE OFF METHOTREXATE AND PREDNISONE RECOMMEND THEY BOTH BE STOPPED AT THIS TIME WILL NEED SURGERY AN OUTPATIENT REGARDING VALVE Code Status: Full code at this time Discussed Condition With: RN and patient Discharge Planning: Pending cardiac clearance
--- NOTE | 2018-05-25 11:51 | P.PCN ---
Date of procedure: 05/25/18 Pre-op diagnosis: Mitral regurgitation, preoperative evaluation Procedure: Procedure performed: 1. Fluoroscopy with interpretation 2. Coronary angiography 3. Right heart catheterization 4. Left heart catheterization 5. Left ventriculography Methods: Risks benefits, alternatives were discussed with the patient. Patient understood consented to the procedure. Patient was brought into the catheterization lab place in the catheterization table. Right groin was prepped and draped in sterile fashion. Right groin was anesthetized with 2% lidocaine. Right femoral vein was accessed and a 7 Somali 11 cm sheath was placed without difficulty. Right femoral artery was accessed and a 4 Somali 11 cm sheath was placed without difficulty. Left heart catheterization: Intraventricular hemodynamics measured at 152/43 mmHg. There was a 80 mmHg trans-ventricular pullback gradient across the mid cavitary obstruction due to hypertrophy with hyperdynamic LV function. Left ventriculography: 4 Somali angled pigtail catheter was advanced into the left ventricle apex. 36 cc contrast injection was administered. Left ventricular ejection fraction 75% with mid cavitary obstruction. There was 4+ mitral regurgitation with severely dilated left atrium and pulmonary vein visualization. Left atrial appendage was also visualized. Right heart catheterization: 1. Right atrium 17 mmHg 2. Right ventricle 43/7 mmHg 3. Pulmonary cavity wedge pressure 27 mmHg 4. Cardiac output 3.3 L/min 5. Cardiac index 2.1 L/min/m Coronary angiography: 1. Left main coronary is angiographically normal 2. Left anterior descending coronary has mild luminal irregularities throughout the mid segment. Diagonal branch has moderate disease estimated at 40%. 3. Left circumflex has minor luminal irregularities. 4. Right Cordis dominant vessel gives rise to the posterior descending branch. Right coronary has mild luminal irregularities. Conclusions: 1. Severe mitral regurgitation 2. Hyperdynamic left ventricular systolic function 3. Mild nonobstructive coronary disease Plan: We will consult cardiothoracic surgery. We will determine if patient may be candidate for minimally invasive approach to mitral valve repair or replacement.
[2018-05-25] MEDS ORDERED: Iohexol 350 MG/ML 100 ML Vial (for Cath Lab) IVCONTRAST ONE (12:29)
[2018-05-25 13:42] LABS: Troponin I 0.09 ng/mL (0.02-0.05)
--- NOTE | 2018-05-25 14:58 | P.PNCV ---
- Note Subjective/Hospital Course: pt seen and evaluated / full consult to follow sts data discussed with pt RISK SCORES About the STS Risk Calculator Procedure: MV Replacement Only Risk of Mortality: 5.484% Morbidity or Mortality: 27.963% Long Length of Stay: 15.927% Short Length of Stay: 16.992% Permanent Stroke: 1.77% Prolonged Ventilation: 17.623% DSW Infection: 0.204% Renal Failure: 5.723% Reoperation: 11.704% Objective: Vital Signs - 24 hr 05/25/18 01:12 05/25/18 01:30 05/25/18 01:45 Temperature 98.9 F Pulse Rate 106 H 106 H 105 H Respiratory Rate 24 16 Blood Pressure 121/71 108/74 Pulse Oximetry 95 96 96 05/25/18 01:50 05/25/18 01:55 05/25/18 02:00 Temperature Pulse Rate 103 H 104 H Respiratory Rate 16 16 Blood Pressure 126/71 112/72 Pulse Oximetry 96 98 05/25/18 02:05 05/25/18 02:34 05/25/18 02:40 Temperature Pulse Rate 108 H 95 H Respiratory Rate 16 16 16 Blood Pressure 123/69 123/66 Pulse Oximetry 05/25/18 02:45 05/25/18 04:19 05/25/18 04:45 Temperature Pulse Rate 96 H 94 H 92 H Respiratory Rate 16 16 16 Blood Pressure 119/66 108/69 117/68 Pulse Oximetry 99 05/25/18 05:15 05/25/18 05:52 05/25/18 06:34 Temperature Pulse Rate 90 100 H 90 Respiratory Rate 16 16 Blood Pressure 112/70 101/63 Pulse Oximetry 99 99 05/25/18 07:40 05/25/18 09:00 Temperature Pulse Rate 92 H Respiratory Rate 16 Blood Pressure 108/65 Pulse Oximetry 98 92 L Labs: Laboratory Results - last 12 hr 05/25/18 05/25/18 05/25/18 04:20 04:20 06:30 WBC RBC Hgb Hct MCV MCH MCHC RDW Plt Count MPV APTT Total Creatine Kinase 36 34 Troponin I 0.03 0.04 Blood Type A Negative Antibody Screen Negative 05/25/18 05/25/18 05/25/18 06:30 12:07 12:46 WBC 7.6 RBC 3.62 L Hgb 11.6 Hct 35.0 MCV 96.8 MCH 32.0 MCHC 33.0 RDW 14.4 Plt Count 113 L MPV 10.3 APTT 26.4 D Total Creatine Kinase 30 Troponin I 0.09 H Blood Type Antibody Screen Result Diagrams: 05/26/18 05:15 05/26/18 05:15 The patient has a significant pectus excavatum which displaces her heart to the left. This may make a right sided small incision approach difficult. I will review her CT and discuss with the patient.
[2018-05-25 18:15] LABS: Hemoglobin A1c 4.8 % (4.3-6.0)
[2018-05-25] MEDS: Senna/Docusate Sodium 8.6/50 MG Tablet PO SCH ×2 (18:38→21:23)
[2018-05-25] MEDS: Furosemide 20 MG Tablet PO SCH (18:38)
--- NOTE | 2018-05-25 19:19 | US ---
EXAM DATE: 05/25/2018 2:38 PM EDT AGE/SEX: 78 years / Female INDICATIONS: Syncope. CLINICAL DATA: This is the patient's initial encounter. Patient reports that signs and symptoms have been present for 1 day and indicates a pain score of 0/10. MEDICAL/SURGICAL HISTORY: Aneurysm, abdominal. Chronic obstructive pulmonary disease. Hyperte nsion. Arthritis. Coronary artery disease. Mitral regurgitation. Appendectomy. Cholecystectomy. T onsillectomy. COMPARISON: [facility]PO, CTA THOR ABD AORTA W CONTRAST W 3D, 05/25/2018. . VELOCITY PARAMETERS: ICA/CCA Ratio: Right 1.0 , Left 1.1 ICA: Right 69.1 cm/sec, Left 89.2 cm/sec CCA: Right 71.1 cm/sec, Left 81.4 cm/sec ECA: Right 98.4 cm/sec, Left 100.0 cm/sec Vertebral: Right 49.7 cm/sec antegrade, Left 52.6 cm/sec antegrade FINDINGS: Right Carotid: Mild arteriosclerotic plaque is visualized.The waveforms are within normal limits. Left Carotid: Mild arteriosclerotic plaque is visualized. The waveforms are within normal limits. Other: None. CONCLUSION: 1. Right Internal Carotid Artery: Mild atherosclerotic plaquing with no sonographic or Doppler findi ngs of a hemodynamically significant stenosis 2. Left Internal Carotid Artery: Mild atherosclerotic plaquing with no sonographic or Doppler findin gs of a hemodynamically significant stenosis. 3. Antegrade flow in both vertebral arteries. Electronically signed by: Luis Miguel Stokes MD 05/25/2018 7:18 PM EDT
[2018-05-26] MEDS: dilTIAZem 60 MG Tablet PO SCH (04:47)
[2018-05-26 06:13] LABS: Baso # (Auto) 0.1 th/mm3 (0.0-0.2); Eos # (Auto) 0.1 th/mm3 (0.0-0.4); Eos % (Auto) 1.8 % (0.0-4.0); Hematocrit 33.5 % (35.0-46.0); Hemoglobin 11.3 gm/dL (11.6-15.3); Lymph # (Auto) 1.1 th/mm3 (1.0-4.8); Lymph % (Auto) 17.7 % (9.0-44.0); Mean Corpuscular HGB Conc 33.8 % (32.0-36.0); Mean Corpuscular Hemoglobin 32.8 pg (27.0-34.0); Mono # (Auto) 0.4 th/mm3 (0.0-0.9); Mono % (Auto) 5.9 % (0.0-8.0); Neut # (Auto) 4.5 th/mm3 (1.8-7.7); Neut % (Auto) 73.6 % (16.0-70.0); Platelet Count 92 th/mm3 (150-450); Red Blood Count 3.45 mil/mm3 (4.00-5.30); Red Cell Distribution Width 15.4 % (11.6-17.2); White Blood Count 6.1 th/mm3 (4.0-11.0)
[2018-05-26 06:44] LABS: Anion Gap 6 meq/L (5-15); Calcium 7.8 mg/dL (8.5-10.1); Carbon Dioxide 27.1 meq/L (21.0-32.0); Chloride 109 meq/L (98-107); Glomerular Filtration Rate Greater Than 89 mL/min (>89); Glucose,Random 91 mg/dL (74-106); Potassium 3.9 meq/L (3.5-5.1); Sodium 142 meq/L (136-145)
[2018-05-26 06:50] LABS: Blood Urea Nitrogen 16 mg/dL (7-18)
--- NOTE | 2018-05-26 07:31 | MB ---
cc: Elizabeth Barksdale MD DATE: 05/25/2018 IDENTIFICATION: A 78-year-old female patient of Dr. Donovan Burnette. 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 The patient has history of mitral valve disease. She had been recently admitted to [facility] in 01/2017 where she presented with severe back pain, also some chest pain; ruled out for myocardial infarction at that time. She had history of small ascending thoracic aortic aneurysm measuring 4.5 cm on CTA at that time. She was diagnosed with hypertrophic cardiomyopathy with systolic anterior motion of the mitral valve leaflet on HAYLEY in January 2016. She had an echocardiogram done at that time, which showed severe mitral valve regurgitation, mild mitral stenosis. There was also some mild to moderate aortic insufficiency. Ejection fraction was 65%. The left ventricle appeared hyperdynamic at that time. She was diagnosed with HOCM with moderate concentric LVH, hyperdynamic systolic function, EF of 70%-75%. She was treated medically and then sent home also after undergoing heart catheterization, which showed some nonobstructive coronary disease at that time. She has been since evaluated by Dr. Shaikh, which showed again nonobstructive coronary disease, with the largest being a diagonal 40% stenosis. She underwent transesophageal echocardiogram also showing blunted, decreased systolic pulmonary venous flow consistent with hemodynamically significant mitral regurgitation. We were consulted to evaluate for mitral valve replacement. PAST MEDICAL HISTORY: Includes severe mitral valve regurgitation, moderate aortic insufficiency, severe pectus excavatum, COPD, hypertrophic cardiomyopathy, history of ascending thoracic aortic aneurysm, hyperlipidemia, severe rheumatoid arthritis on methotrexate and prednisone. PAST SURGICAL HISTORY: Include cholecystectomy, appendectomy, tonsillectomy. ALLERGIES: CODEINE. HOME MEDICATIONS: Include: 1. Aspirin 81. 2. Methotrexate 2.5 daily. 3. Zantac 150 daily. 4. Atorvastatin 20. 5. Diltiazem 60. 6. Lasix 20. 7. Prednisone 2.5. FAMILY HISTORY: Noncontributory. SOCIAL HISTORY: Smoked for over 50 years, a pack per week; quit 2 years ago. No alcohol. She does live with her family. REVIEW OF SYSTEMS: GENERAL: No night sweats, fever, heat and cold intolerance. SKIN: No psoriasis, itching or hives. HEENT: No blurred vision, hearing loss. RESPIRATORY: Some shortness of breath with minimal exertion. She has had recent chest pain. No paroxysmal nocturnal dyspnea. No orthopnea. GASTROINTESTINAL: No diarrhea or vomiting. GENITOURINARY: No burning, frequency, urgency. CENTRAL NERVOUS SYSTEM: No history of TIA, CVA or seizure disorder. ENDOCRINOLOGY: No history of diabetes or hypothyroidism. PHYSICAL EXAMINATION: GENERAL/VITAL SIGNS: : This is a very thin, healthy-appearing female of stated age, BMI of 17, who is alert and oriented. Stable at 110/60, heart rate of 90, O2 saturation 92 on 2 liters. The patient is alert, oriented, in no acute distress. HEAD: Normocephalic, atraumatic. Oral mucosa pink, moist. NECK: Supple. No JVD. HEART: Sounds S1, S2 with a 3/6 diastolic murmur best noted the left lower sternum. She has a significant pectus excavatum. LUNGS: Currently clear to auscultation. No wheezes, rales or rhonchi. ABDOMEN: Flat, concave No masses or organomegaly. EXTREMITIES: No cyanosis, clubbing, or edema. LABORATORY DATA: Lab works shows hemoglobin 11, hematocrit 35, white cell count of 7.6, platelet count of 113. Sodium 140, potassium 4.2, BUN of 20, creatinine 0.80. Troponin 0.09. BNP of 1100. INR 1.0. DIAGNOSTIC DATA: Echocardiogram as above. IMAGING: She did have a thoracic aorta CT which showed a 4.3 aneurysm of the ascending aorta, calcified masses in the right lung. Some dilation of the renal collecting systems. IMPRESSION: This is again a 78-year-old female with severe mitral regurgitation, [id number] aortic insufficiency, status post heart catheterization with nonobstructive coronary disease, ejection fraction 65%-70%, hypertrophic cardiomyopathy, severe chronic obstructive pulmonary disease. Cardiac films have been evaluated by Dr. Elizabeth Barksdale; risk of mortality is 5.4, morbidity and mortality 27%. PLAN: Plan will be to discharge the patient home once she has obtained her TAVR, CTA; also pulmonary function test and carotid ultrasound. We will bring the patient back 06/14/2018 for surgery. Procedures, alternatives, and risks have been discussed with the patient. In the meantime, she is to hold her prednisone and methotrexate at this time and this was discussed with the family and the patient, she is agreeable to proceed. Further plan per Dr. Shaikh. Dictated by KALEE Morton I have reviewed this patients history and personally examined and evaluated her for MVR on 05/25/18 with the KALEE. I spent ~30 minutes with her discussing her mitral valve disease and MVR. A minimally invasive approach was discussed pending preoperative studies. MD LUCA Orta/herson/jyoti , 03:10 PM , 03:23 PM MTDEmerald
[2018-05-26 08:09] LABS: Ovalocytes 1+; Platelet Morphology Normal (Normal)
[2018-05-26] MEDS: Furosemide 20 MG Tablet PO SCH (08:22)
[2018-05-26] MEDS: Senna/Docusate Sodium 8.6/50 MG Tablet PO SCH (08:22)
[2018-05-26 08:24] VITALS: RESP 18
--- NOTE | 2018-05-26 08:27 | P.PNCA ---
Subjective Interval history: Patient is doing well today with no complaints. No issues with groin access site. Daughter at bedside. Patient and daughter verbalized understanding regarding plan for outpatient MVR. Medications and Allergies Active Medications: Active Medications Acetaminophen (Tylenol) 650 mg PO Q4H PRN PRN Reason: Temp > 100.4 Al Hydroxide/Mg Hydroxide (Milk Of Magnesia Liq) 30 ml PO Q12H PRN PRN Reason: Mild Constipation Atorvastatin Calcium (Lipitor) 20 mg PO DAILY [facility] Last Admin: 05/26/18 08:22 Dose: 20 mg Bisacodyl (Dulcolax Supp) 10 mg RECTAL DAILY PRN PRN Reason: SEVERE CONSITIPATION Diltiazem HCl (Cardizem) 60 mg PO Q12H [facility] Last Admin: 05/26/18 04:47 Dose: 60 mg Furosemide (Lasix) 20 mg PO DAILY [facility] Last Admin: 05/26/18 08:22 Dose: 20 mg Lactulose (Lactulose Liq) 30 ml PO DAILY PRN PRN Reason: SEVERE CONSITIPATION Naloxone HCl (Narcan Inj) 0.4 mg IV.PUSH UNSCH PRN PRN Reason: SEE LABEL COMMENTS Ondansetron HCl (Zofran Inj) 4 mg IV.PUSH Q6H PRN PRN Reason: NAUSEA OR VOMITING Oxycodone HCl (Roxicodone) 5 mg PO Q4H PRN PRN Reason: PAIN SCALE 3 TO 5 Senna/Docusate Sodium (Shelbi-Colace) 1 tab PO BID [facility] Last Admin: 05/26/18 08:22 Dose: 1 tab Sennosides (Senokot) 17.2 mg PO Q12H PRN PRN Reason: Moderate Constipation Sodium Chloride (Ns Flush) 2 ml IV.FLUSH BID [facility] Last Admin: 05/26/18 08:22 Dose: 2 ml Sodium Chloride (Ns Flush) 2 ml IV.FLUSH PRN PRN PRN Reason: FLUSH AFTER USING IV ACCESS Allergies Allergy/AdvReac Type Severity Reaction Status Date / Time codeine AdvReac Nausea/Vomi Verified 05/25/18 02:03 ting Home Medications Medication Instructions Recorded Confirmed Type aspirin 81 mg PO DAILY 05/25/18 05/25/18 History atorvastatin 20 mg PO DAILY 05/25/18 05/25/18 History diltiazem HCl 60 mg PO Q12H 05/25/18 05/25/18 History furosemide [Lasix] 20 mg PO DAILY 05/25/18 05/25/18 History methotrexate sodium 2.5 mg PO 05/25/18 History prednisone 2.5 mg PO DAILY 05/25/18 05/25/18 History ranitidine HCl 150 mg PO DAILY 05/25/18 05/25/18 History Physical Exam Vital signs: Vital Signs 05/25/18 09:00 05/25/18 12:00 05/25/18 13:00 Temperature 98.2 F Pulse Rate 76 75 72 Respiratory Rate 18 Blood Pressure 104/67 Pulse Oximetry 92 L 05/25/18 14:00 05/25/18 15:00 05/25/18 16:00 Temperature 98.3 F Pulse Rate 79 88 87 Respiratory Rate 18 Blood Pressure 117/61 Pulse Oximetry 96 05/25/18 17:00 05/25/18 17:15 05/25/18 18:00 Temperature Pulse Rate 87 90 Respiratory Rate Blood Pressure Pulse Oximetry 96 05/25/18 19:00 05/25/18 20:00 05/25/18 21:00 Temperature 98.6 F Pulse Rate 92 H 90 86 Respiratory Rate 16 Blood Pressure 115/58 L Pulse Oximetry 96 05/25/18 22:00 05/25/18 23:00 05/26/18 00:00 Temperature 98.3 F Pulse Rate 80 72 72 Respiratory Rate 16 Blood Pressure 87/50 L Pulse Oximetry 96 05/26/18 01:00 05/26/18 02:00 05/26/18 03:00 Temperature 97.9 F Pulse Rate 78 72 78 Respiratory Rate 16 Blood Pressure 103/56 L Pulse Oximetry 94 L 05/26/18 04:00 05/26/18 05:00 05/26/18 06:00 Temperature Pulse Rate 81 85 82 Respiratory Rate Blood Pressure Pulse Oximetry 05/26/18 07:00 Temperature 97.4 F L Pulse Rate 89 Respiratory Rate 18 Blood Pressure 93/54 L Pulse Oximetry 95 Intake & Output 05/25/18 05/26/18 05/26/18 18:59 06:59 18:59 Intake Total 493.7 / 493.7 480 / 480 Output Total 300 / 300 600 / 600 Balance 193.7 / 193.7 -120 / -120 Weight 103 lb 2.821 oz Intake: IV 13.7 / 13.7 Heparin/D5W 25,000 U/250 mL 25, 13.7 / 13.7 000 unit In 250 ml @ Per Protocol IV.CONT TITRATE PRN Rx #:[id number] Oral 480 / 480 480 / 480 Output: Urine 300 / 300 600 / 600 Other: # Voids 1 Date of Last Bowel Movement 05/24/18 05/24/18 Narrative: GENERAL: Well-developed well-nourished. In no acute distress. NECK: No carotid bruits. No JVD. CARDIOVASCULAR: Regular rate and rhythm. 3/6 diastolic murmur appreciated at the lower left sternal border. Pectus excavatum. Chest wall pain to palpation. RESPIRATORY: No accessory muscle use. Clear to auscultation. Breath sounds equal bilaterally. MUSCULOSKELETAL: No clubbing or cyanosis. No edema. Right groin access site with intact pulse and no swelling, ecchymosis, or tenderness. NEUROLOGICAL: Awake and alert. Normal speech. Results 05/26/18 05:15 05/26/18 05:15 Cardiac Enzymes 05/25/18 05/25/18 05/25/18 Range/Units 01:30 01:30 04:20 AST 29 (15-37) U/L Troponin I 0.03 0.03 (0.02-0.05) ng/mL B-Natriuretic Peptide 1102 H (0-100) pg/mL 05/25/18 05/25/18 Range/Units 06:30 12:46 AST (15-37) U/L Troponin I 0.04 0.09 H (0.02-0.05) ng/mL B-Natriuretic Peptide (0-100) pg/mL Coagulation 05/25/18 05/25/18 05/25/18 Range/Units 01:30 01:30 12:07 PT 10.1 (9.8-11.6) sec APTT 21.1 L 26.4 D (24.3-30.1) sec B-Natriuretic Peptide 1102 H (0-100) pg/mL CBC 05/25/18 05/25/18 05/26/18 Range/Units 01:30 06:30 05:15 WBC 8.8 7.6 6.1 (4.0-11.0) th/mm3 RBC 4.15 3.62 L 3.45 L (4.00-5.30) mil/mm3 Hgb 13.3 11.6 11.3 L (11.6-15.3) gm/dL Hct 40.2 35.0 33.5 L (35.0-46.0) % Plt Count 125 L 113 L 92 L (150-450) th/mm3 Neut # (Auto) 6.5 4.5 (1.8-7.7) th/mm3 Lymph # (Auto) 1.5 1.1 (1.0-4.8) th/mm3 [place] # (Auto) 0.5 0.4 (0.0-0.9) th/mm3 Eos # (Auto) 0.2 0.1 (0.0-0.4) th/mm3 Baso # (Auto) 0.1 0.1 (0.0-0.2) th/mm3 Comprehensive Metabolic Panel 05/25/18 05/26/18 Range/Units 01:30 05:15 Sodium 140 142 (136-145) meq/L Potassium 4.2 3.9 (3.5-5.1) meq/L Chloride 106 109 H (98-107) meq/L Carbon Dioxide 27.4 27.1 (21.0-32.0) meq/L BUN 20 H 16 (7-18) mg/dL Creatinine 0.80 0.61 (0.50-1.00) mg/dL Calcium 8.3 L 7.8 L (8.5-10.1) mg/dL AST 29 (15-37) U/L ALT 23 (10-53) U/L Alkaline Phosphatase 94 (45-117) U/L Total Protein 6.9 (6.4-8.2) g/dL Albumin 3.6 (3.4-5.0) g/dL Intake and Output 05/25/18 05/26/18 05/26/18 22:59 06:59 14:59 Intake Total 480 / 480 480 / 480 Output Total 300 / 300 600 / 600 Balance 180 / 180 -120 / -120 Intake: Oral 480 / 480 480 / 480 Output: Urine 300 / 300 600 / 600 Other: # Voids 1 Date of Last Bowel Movement 05/24/18 05/24/18 05/24/18 Weight 103 lb 2.821 oz - Imaging and Cardiology Imaging: Impressions Chest X-Ray 05/25/18 01:29 CONCLUSION: No acute abnormality is seen. The lungs are hyperinflated. Thoracic Aorta CT 05/25/18 02:07 CONCLUSION: 1. Scattered atherosclerotic calcification seen throughout. There is a 4.3 cm aneurysm of the ascending aorta. No dissection is seen. 2. There are prominent pectus excavatum deformity deforming the chest and displacing the heart to the left. 3. Calcified masses in the right lung. The likely from granulomatous exposure. 4. Dilatation the biliary system which may reflect a reservoir phenomenon following cholecystectomy. 5. Dilatation of pancreatic duct. Because this is not known. It is likely long- standing as there does appear to be some atrophy of the pancreas. 6. Dilatation the renal collecting systems bilaterally being more prominent on the right to the level the UPJs which could suggest underlying UPJ type obstruction. There is no delayed enhancement of the kidneys. No renal stones are seen. 7. Scattered colonic diverticula. Carotid Doppler Study 05/25/18 14:38 CONCLUSION: 1. Right Internal Carotid Artery: Mild atherosclerotic plaquing with no sonographic or Doppler findings of a hemodynamically significant stenosis 2. Left Internal Carotid Artery: Mild atherosclerotic plaquing with no sonographic or Doppler findings of a hemodynamically significant stenosis. 3. Antegrade flow in both vertebral arteries. Assessment and Plan - Plan 78-year-old female with a past medical history of mild to moderate CAD, moderate severe MR, HTN, COPD who presented with chest pain Severe symptomatic mitral regurgitation: Left and right heart catheterization showed mild nonobstructive CAD and severe MR. Cardiothoracic surgery consulted and is planning on outpatient MVR. Discharge planning. Discussed Condition With: Dr. Shaikh
--- NOTE | 2018-05-26 10:06 | P.PNIM ---
Subjective Interval history: Chief Complaint: CHEST PAIN History of Present Illness: Patient is a 78-year-old female who presented to the emergency department at [place] via private transport under the care of her granddaughter who is her healthcare surrogate and power of employment law attorney for evaluation of retrosternal chest pain radiating into her back. Patient had similar chest pain in the past and had taken nitroglycerin with symptom relief. 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 Boo can [facility]. Patient previously undergone cardiac catheterization [facility]. Patient also has a known history of thoracic aortic aneurysm which is nonsurgical at this time. Has a history of COPD and emphysema also. Symptoms began on Thursday night persisted nonproductive cough without any associated fever chills had some chest pain after forceful coughing. Patient has history of osteoporosis and rheumatoid arthritis also. Has had pain with movement as well as pain with resting. Granddaughter report history of cardiac valvular heart disease as well as thoracic aortic aneurysm and rheumatoid arthritis and dyslipidemia and GERD. Denies any recent trauma other than coughing. Patient has nitroglycerin at home but did not take it for chest pain prior to arrival patient does not use oxygen at home for her COPD emphysema. Patient recently moved to the area from [facility]. Her chest pain was 8 out of 10 and was tightness and aching and dullness with intermittent and progressive worsening of the chest pain. Patient denies any recent illness, recent surgery, recent DC home or new injury. Denies any new medications. Patient denies any history of DVT or pulmonary embolism. Has had some nausea on and off denies any dyspnea and some cough denies any vomiting denies any diaphoresis or impending doom denies any syncope or palpitation denies any fever or leg swelling denies any treatment prior to arrival. Has been seen by cardiology. Already had a HAYLEY, I believe which showed severe mitral valve issues. Troponins have remained negative here. Family history is unobtainable from the patient unfortunately 10-24 DW RN AND PT AND FAMILY CLEARED BY CARDIO NEEDS TAVR CT OF CHEST NEEDS TO WEAN OFF OXYGEN OR MAY NEED HOME OXYGEN WALK TEST DW RN AND PT AND FAMILY PREDNISONE AND METHOTREXATE HAVE BEEN STOPPED BY [facility] IN PREP FOR SURGERY PATIENT DEEMED TOO HIGH RISK FOR SURGERY HERE WILL BE REFERRED TO [facility] FOR EVALUATIONS Physical Exam Vital signs: Vital Signs 05/25/18 12:00 05/25/18 13:00 05/25/18 14:00 Temperature Pulse Rate 75 72 79 Respiratory Rate Blood Pressure Pulse Oximetry 05/25/18 15:00 05/25/18 16:00 05/25/18 17:00 Temperature 98.3 F Pulse Rate 88 87 87 Respiratory Rate 18 Blood Pressure 117/61 Pulse Oximetry 96 05/25/18 17:15 05/25/18 18:00 05/25/18 19:00 Temperature Pulse Rate 90 92 H Respiratory Rate Blood Pressure Pulse Oximetry 96 05/25/18 20:00 05/25/18 21:00 05/25/18 22:00 Temperature 98.6 F Pulse Rate 90 86 80 Respiratory Rate 16 Blood Pressure 115/58 L Pulse Oximetry 96 05/25/18 23:00 05/26/18 00:00 05/26/18 01:00 Temperature 98.3 F Pulse Rate 72 72 78 Respiratory Rate 16 Blood Pressure 87/50 L Pulse Oximetry 96 05/26/18 02:00 05/26/18 03:00 05/26/18 04:00 Temperature 97.9 F Pulse Rate 72 78 81 Respiratory Rate 16 Blood Pressure 103/56 L Pulse Oximetry 94 L 05/26/18 05:00 05/26/18 06:00 05/26/18 07:00 Temperature 97.4 F L Pulse Rate 85 82 89 Respiratory Rate 18 Blood Pressure 93/54 L Pulse Oximetry 95 05/26/18 08:00 05/26/18 09:00 Temperature Pulse Rate 82 86 Respiratory Rate Blood Pressure Pulse Oximetry 96 Intake & Output 05/25/18 05/26/18 05/26/18 18:59 06:59 18:59 Intake Total 493.7 / 493.7 480 / 480 Output Total 300 / 300 600 / 600 Balance 193.7 / 193.7 -120 / -120 Weight 46.8 kg Intake: IV 13.7 / 13.7 Heparin/D5W 25,000 U/250 mL 25, 13.7 / 13.7 000 unit In 250 ml @ Per Protocol IV.CONT TITRATE PRN Rx #:[id number] Oral 480 / 480 480 / 480 Output: Urine 300 / 300 600 / 600 Other: # Voids 1 Date of Last Bowel Movement 05/24/18 05/24/18 Narrative: Awake alert and oriented x3 talkative and cooperative GENERAL: Well-developed well-nourished. In no acute distress. Eyes PERRLA EOMI no scleral icterus Oral mucosa is moist tongue is midline NECK: No carotid bruits. No JVD. Supple CARDIOVASCULAR: Regular rate and rhythm. 3/6 diastolic murmur appreciated at the lower left sternal border. Pectus excavatum. Chest wall pain to palpation. RESPIRATORY: No accessory muscle use. Clear to auscultation. Breath sounds equal bilaterally. Decreased breath sounds bilaterally MUSCULOSKELETAL: No clubbing or cyanosis. No edema. Right groin access site with intact pulse and no swelling, ecchymosis, or tenderness. NEUROLOGICAL: Awake and alert. Normal speech. Insight and judgment is good Mood and behavior somewhat appropriate Results - Labs CBC & Chem 7: 05/26/18 05:15 05/26/18 05:15 Laboratory Results - last 24 hr 05/25/18 05/25/18 05/25/18 12:07 12:46 15:10 WBC RBC Hgb Hct MCV MCH MCHC RDW Plt Count MPV Prelim Diff (Auto) Neut % (Auto) Lymph % (Auto) [place] % (Auto) Eos % (Auto) Baso % (Auto) Neut # (Auto) Lymph # (Auto) [place] # (Auto) Eos # (Auto) Baso # (Auto) WBC Differential Diff Scan Differential Comment Platelet Estimate Platelet Morphology Ovalocytes APTT 26.4 D Sodium Potassium Chloride Carbon Dioxide Anion Gap BUN Creatinine Estimated GFR Random Glucose Hemoglobin A1c Calcium Total Creatine Kinase 30 Troponin I 0.09 H Nasal Screen MRSA (PCR) Not detected 05/25/18 05/26/18 05/26/18 15:30 05:15 05:15 WBC 6.1 RBC 3.45 L Hgb 11.3 L Hct 33.5 L MCV 97.0 MCH 32.8 MCHC 33.8 RDW 15.4 Plt Count 92 L MPV 11.0 Prelim Diff (Auto) Slide review pending Neut % (Auto) 73.6 H Lymph % (Auto) 17.7 [place] % (Auto) 5.9 Eos % (Auto) 1.8 Baso % (Auto) 1.0 Neut # (Auto) 4.5 Lymph # (Auto) 1.1 [place] # (Auto) 0.4 Eos # (Auto) 0.1 Baso # (Auto) 0.1 WBC Differential . Diff Scan Auto diff confirmed Differential Comment . Platelet Estimate Low L Platelet Morphology Normal Ovalocytes 1+ H APTT Sodium 142 Potassium 3.9 Chloride 109 H Carbon Dioxide 27.1 Anion Gap 6 BUN 16 Creatinine 0.61 Estimated GFR Greater than 89 Random Glucose 91 Hemoglobin A1c 4.8 Calcium 7.8 L Total Creatine Kinase Troponin I Nasal Screen MRSA (PCR) - Imaging Impressions Carotid Doppler Study 05/25/18 14:38 CONCLUSION: 1. Right Internal Carotid Artery: Mild atherosclerotic plaquing with no sonographic or Doppler findings of a hemodynamically significant stenosis 2. Left Internal Carotid Artery: Mild atherosclerotic plaquing with no sonographic or Doppler findings of a hemodynamically significant stenosis. 3. Antegrade flow in both vertebral arteries. - Procedures HAYLEY and cardiac catheterization Date of procedure: 05/25/18 Pre-op diagnosis: Mitral regurgitation, preoperative evaluation Procedure: Procedure performed: 1. Fluoroscopy with interpretation 2. Coronary angiography 3. Right heart catheterization 4. Left heart catheterization 5. Left ventriculography Methods: Risks benefits, alternatives were discussed with the patient. Patient understood consented to the procedure. Patient was brought into the catheterization lab place in the catheterization table. Right groin was prepped and draped in sterile fashion. Right groin was anesthetized with 2% lidocaine. Right femoral vein was accessed and a 7 [place] 11 cm sheath was placed without difficulty. Right femoral artery was accessed and a 4 [place] 11 cm sheath was placed without difficulty. Left heart catheterization: Intraventricular hemodynamics measured at 152/43 mmHg. There was a 80 mmHg trans-ventricular pullback gradient across the mid cavitary obstruction due to hypertrophy with hyperdynamic LV function. Left ventriculography: 4 [place] angled pigtail catheter was advanced into the left ventricle apex. 36 cc contrast injection was administered. Left ventricular ejection fraction 75% with mid cavitary obstruction. There was 4+ mitral regurgitation with severely dilated left atrium and pulmonary vein visualization. Left atrial appendage was also visualized. Right heart catheterization: 1. Right atrium 17 mmHg 2. Right ventricle 43/7 mmHg 3. Pulmonary cavity wedge pressure 27 mmHg 4. Cardiac output 3.3 L/min 5. Cardiac index 2.1 L/min/m Coronary angiography: 1. Left main coronary is angiographically normal 2. Left anterior descending coronary has mild luminal irregularities throughout the mid segment. Diagonal branch has moderate disease estimated at 40%. 3. Left circumflex has minor luminal irregularities. 4. Right [place] dominant vessel gives rise to the posterior descending branch. Right coronary has mild luminal irregularities. Conclusions: 1. Severe mitral regurgitation 2. Hyperdynamic left ventricular systolic function 3. Mild nonobstructive coronary disease Plan: We will consult cardiothoracic surgery. We will determine if patient may be candidate for minimally invasive approach to mitral valve repair or replacement. Documented By: William Shaikh MD 05/25/18 1129 Signed By: <Electronically signed by William Shaikh MD> 05/25/18 1151 CARDIOLOGY REPORT - Continued Ordered By: Karlo KILGORE MR#: [id number] : 1940 Attended By: Kai Morales DO Loc: [facility] Age: 78 Copy To: Donovan Burnette MD Pt Name: Monique Quick Bed: 452-A Order #: [id number] Page 3 of 3 Signed Report #:[id number] Provider [facility] [address] [place] [address] Ordered By: Karlo KILGORE MR#: [id number] : 1940 Attended By: Kai Morales DO Loc: [facility] Age: 78 Copy To: Donovan Burnette MD Bed: 452-A Order #: [id number] Page 1 of 1 Signed Report #:[id number] Provider Indication: CHEST PAIN, MR CONCLUSIONS Normal left ventricular size. Bfywvcwd-wh-dtykrj concentric left ventricular hypertrophy with mid cavitary obstruction due to hyperdynamic function. The left ventricular systolic function is normal with an estimated ejection fraction in the range of 60-65%. No regional wall motion abnormalities are present. Doppler parameters are consistent with impaired left ventricular relaxtion ( grade 1 diastolic dysfunction). The left atrial size is moderately dilated. Mild thickening of the mitral valve leaflets. Calcification of both mitral valve leaflets. Ywlwkmwt-un-gzeslm mitral valve regurgitation. Blunted (decreased) systolic pulmonary venous flow is noted which is consistent with hemodynamically significant mitral regurgiation. Mitral annular calcification is present. Mild thickening of the tricuspid valve leaflets. There is mild tricuspid valve regurgitation. Mild pulmonary valve regurgitation. Trileaflet aortic valve. Aortic valve sclerosis is present. Diffuse calcification of the aortic valve. Vfkw-op-cwzhyfpg aortic valve regurgitation. Eccentric aortic regurgitation jet directed at the mitral valve. No aortic valve stenosis. BP: / HR: Rhythm: Technical Quality: Medications Complications Proc. Components FINDINGS LEFT VENTRICLE Normal left ventricular size. Nfvitnmv-yt-erdqwn concentric left ventricular hypertrophy with mid cavitary obstruction due to hyperdynamic function. The left ventricular systolic function is normal with an estimated ejection fraction in the range of 60-65%. No regional wall motion abnormalities are present. Doppler parameters are consistent with impaired left ventricular relaxtion ( grade 1 diastolic dysfunction). RIGHT VENTRICLE Normal right ventricular size and systolic function. LEFT ATRIUM The left atrial size is moderately dilated. RIGHT ATRIUM The right atrial size is normal. ATRIAL APPENDAGES Normal left atrial appendage size with no evidence of thrombus formation. ATRIAL SEPTUM Normal atrial septal thickness without atrial level shunting by limited color doppler interrogation. AORTA The aortic root and proximal ascending aorta are normal in size on limited imaging. There is plaque seen in the transverse aorta. MITRAL VALVE Mild thickening of the mitral valve leaflets. Calcification of both mitral valve leaflets. Rznzvfzj-bc-qygrgu mitral valve regurgitation. Blunted (decreased) systolic pulmonary venous flow is noted which is consistent with hemodynamically significant mitral regurgiation. Mitral annular calcification is present. AORTIC VALVE Trileaflet aortic valve. Aortic valve sclerosis is present. Diffuse calcification of the aortic valve. Qohj-zr-qcwjapkg aortic valve regurgitation. Eccentric aortic regurgitation jet directed at the mitral valve. No aortic valve stenosis. TRICUSPID VALVE Mild thickening of the tricuspid valve leaflets. There is mild tricuspid valve regurgitation. VESSELS The inferior vena cava is normal in size. PULMONARY VALVE Mild pulmonary valve regurgitation. PERICADIUM No pericardial effusion. William Shaikh MD, FACC (Electronically Signed) Final Date:25 May 2018 10:35 Amended: 25 May 2018 11:22 Assessment and Plan - Plan Chest pain atypical versus typical To go for cardiac catheterization today Had previously undergone a HAYLEY already today regarding the mitral valve Troponins so far remain negative Severe mitral regurgitation-status post HAYLEY Scheduled for cardiac catheterization today-SP CARDIAC CATH- REPORT NOT AVAILABLE History of COPD Elevated BNP Chronic thoracic aortic aneurysm without rupture at 4.3 cm History of mild to moderate coronary artery disease and moderate severe MR and hypertension and COPD Hyperlipidemia continue on Lipitor Hypertension continue on diltiazem and Lasix Rheumatoid arthritis on chronic methotrexate and prednisone GERD on ranitidine daily Cardiovascular surgery has been consulted for evaluation of the severe mitral regurgitation [facility]- NEEDS TO BE OFF METHOTREXATE AND PREDNISONE RECOMMEND THEY BOTH BE STOPPED AT THIS TIME TRY TO WEAN OFF OXYGEN WALK TEST HOME OXYGEN IF NEEDED WILL NEED SURGERY AN OUTPATIENT REGARDING VALVE AT [facility] DEEMED TO HIGH RISK FOR [place] Code Status: FULL CODE Discussed Condition With: RN AND PT AND [facility] AND FAMILY Discharge Planning: Pending cardiac SURGERY CLEARANCE
--- NOTE | 2018-05-26 10:58 | P.PNCV ---
- Note Subjective/Hospital Course: pt seen and evaluated / full consult to follow sts data discussed with pt RISK SCORES About the STS Risk Calculator Procedure: MV Replacement Only Risk of Mortality: 5.484% Morbidity or Mortality: 27.963% Long Length of Stay: 15.927% Short Length of Stay: 16.992% Permanent Stroke: 1.77% Prolonged Ventilation: 17.623% DSW Infection: 0.204% Renal Failure: 5.723% Reoperation: 11.704% 05/26 repeat FEV1 ( 0.75) pending carotid US ok await TAVR CTA for MVR , then ok to dc from [facility] will be scheduled as outpt on Thursday 06/14 Objective: Vital Signs - 24 hr 05/25/18 12:00 05/25/18 13:00 05/25/18 14:00 Temperature Pulse Rate 75 72 79 Respiratory Rate Blood Pressure Pulse Oximetry 05/25/18 15:00 05/25/18 16:00 05/25/18 17:00 Temperature 98.3 F Pulse Rate 88 87 87 Respiratory Rate 18 Blood Pressure 117/61 Pulse Oximetry 96 05/25/18 17:15 05/25/18 18:00 05/25/18 19:00 Temperature Pulse Rate 90 92 H Respiratory Rate Blood Pressure Pulse Oximetry 96 05/25/18 20:00 05/25/18 21:00 05/25/18 22:00 Temperature 98.6 F Pulse Rate 90 86 80 Respiratory Rate 16 Blood Pressure 115/58 L Pulse Oximetry 96 05/25/18 23:00 05/26/18 00:00 05/26/18 01:00 Temperature 98.3 F Pulse Rate 72 72 78 Respiratory Rate 16 Blood Pressure 87/50 L Pulse Oximetry 96 05/26/18 02:00 05/26/18 03:00 05/26/18 04:00 Temperature 97.9 F Pulse Rate 72 78 81 Respiratory Rate 16 Blood Pressure 103/56 L Pulse Oximetry 94 L 05/26/18 05:00 05/26/18 06:00 05/26/18 07:00 Temperature 97.4 F L Pulse Rate 85 82 89 Respiratory Rate 18 Blood Pressure 93/54 L Pulse Oximetry 95 05/26/18 08:00 05/26/18 09:00 Temperature Pulse Rate 82 86 Respiratory Rate Blood Pressure Pulse Oximetry 96 GENERAL: A&O x 3 SKIN: Warm and dry. HEAD: Normocephalic. EYES: No scleral icterus. No injection or drainage. NECK: Supple, trachea midline. No JVD or lymphadenopathy. CARDIOVASCULAR: Regular rate and rhythm without murmurs, gallops, or rubs. 3/6 diastolic murmur RESPIRATORY: Breath sounds equal bilaterally. No accessory muscle use. diminished in bases, on 2 liter 02 GASTROINTESTINAL: Abdomen soft, non-tender, nondistended. MUSCULOSKELETAL: No cyanosis, or edema. BACK: Nontender without obvious deformity. No CVA tenderness. Labs: Laboratory Results - last 12 hr 05/26/18 05/26/18 05:15 05:15 WBC 6.1 RBC 3.45 L Hgb 11.3 L Hct 33.5 L MCV 97.0 MCH 32.8 MCHC 33.8 RDW 15.4 Plt Count 92 L MPV 11.0 Prelim Diff (Auto) Slide review pending Neut % (Auto) 73.6 H Lymph % (Auto) 17.7 Atkinson % (Auto) 5.9 Eos % (Auto) 1.8 Baso % (Auto) 1.0 Neut # (Auto) 4.5 Lymph # (Auto) 1.1 Atkinson # (Auto) 0.4 Eos # (Auto) 0.1 Baso # (Auto) 0.1 WBC Differential . Diff Scan Auto diff confirmed Differential Comment . Platelet Estimate Low L Platelet Morphology Normal Ovalocytes 1+ H Sodium 142 Potassium 3.9 Chloride 109 H Carbon Dioxide 27.1 Anion Gap 6 BUN 16 Creatinine 0.61 Estimated GFR Greater than 89 Random Glucose 91 Calcium 7.8 L Result Diagrams: 05/26/18 05:15 05/26/18 05:15 - Plan (1) Severe mitral regurgitation Plan: repeat FEV1 tentatively scheduled for MVR on 06/14/18
[2018-05-26 11:57] VITALS: O2SAT 95
[2018-05-26 15:44] VITALS: BP 92/52; TEMP 98.2
--- NOTE | 2018-05-26 16:09 | P.DS ---
Date of admission: 05/25/18 04:24 Primary care physician: Donovan Burnette MD Attending physician on discharge: Kai Morales Anticipated date of discharge: 05/26/18 Brief History from admission: Patient is a 78-year-old female who presented to the emergency department at [facility] via private transport under the care of her granddaughter who is her healthcare surrogate and power of securities attorney for evaluation of retrosternal chest pain radiating into her back. Patient had similar chest pain in the past and had taken nitroglycerin with symptom relief. Patient's primary leather coverer is Dr. Boo can [facility]. Patient previously undergone cardiac catheterization [facility]. Patient also has a known history of thoracic aortic aneurysm which is nonsurgical at this time. Has a history of COPD and emphysema also. Symptoms began on Thursday night persisted nonproductive cough without any associated fever chills had some chest pain after forceful coughing. Patient has history of osteoporosis and rheumatoid arthritis also. Has had pain with movement as well as pain with resting. Granddaughter report history of cardiac valvular heart disease as well as thoracic aortic aneurysm and rheumatoid arthritis and dyslipidemia and GERD. Denies any recent trauma other than coughing. Patient has nitroglycerin at home but did not take it for chest pain prior to arrival patient does not use oxygen at home for her COPD emphysema. Patient recently moved to the area from [facility]. Her chest pain was 8 out of 10 and was tightness and aching and dullness with intermittent and progressive worsening of the chest pain. Patient denies any recent illness, recent surgery, recent [facility] home or new injury. Denies any new medications. Patient denies any history of DVT or pulmonary embolism. Has had some nausea on and off denies any dyspnea and some cough denies any vomiting denies any diaphoresis or impending doom denies any syncope or palpitation denies any fever or leg swelling denies any treatment prior to arrival. Has been seen by cardiology. Already had a HAYLEY, I believe which showed severe mitral valve issues. Troponins have remained negative here. Family history is unobtainable from the patient unfortunately Patient update on day of discharge: Chief Complaint: CHEST PAIN History of Present Illness: Patient is a 78-year-old female who presented to the emergency department at [facility] via private transport under the care of her granddaughter who is her healthcare surrogate and power of securities attorney for evaluation of retrosternal chest pain radiating into her back. Patient had similar chest pain in the past and had taken nitroglycerin with symptom relief. Patient's primary leather coverer is Dr. Boo can [facility]. Patient previously undergone cardiac catheterization [facility]. Patient also has a known history of thoracic aortic aneurysm which is nonsurgical at this time. Has a history of COPD and emphysema also. Symptoms began on Thursday night persisted nonproductive cough without any associated fever chills had some chest pain after forceful coughing. Patient has history of osteoporosis and rheumatoid arthritis also. Has had pain with movement as well as pain with resting. Granddaughter report history of cardiac valvular heart disease as well as thoracic aortic aneurysm and rheumatoid arthritis and dyslipidemia and GERD. Denies any recent trauma other than coughing. Patient has nitroglycerin at home but did not take it for chest pain prior to arrival patient does not use oxygen at home for her COPD emphysema. Patient recently moved to the area from [facility]. Her chest pain was 8 out of 10 and was tightness and aching and dullness with intermittent and progressive worsening of the chest pain. Patient denies any recent illness, recent surgery, recent [facility] home or new injury. Denies any new medications. Patient denies any history of DVT or pulmonary embolism. Has had some nausea on and off denies any dyspnea and some cough denies any vomiting denies any diaphoresis or impending doom denies any syncope or palpitation denies any fever or leg swelling denies any treatment prior to arrival. Has been seen by cardiology. Already had a HAYLEY, I believe which showed severe mitral valve issues. Troponins have remained negative here. Family history is unobtainable from the patient unfortunately 10-24 DW RN AND PT AND FAMILY CLEARED BY CARDIO NEEDS TAVR CT OF CHEST NEEDS TO WEAN OFF OXYGEN OR MAY NEED HOME OXYGEN WALK TEST DW RN AND PT AND FAMILY PREDNISONE AND METHOTREXATE HAVE BEEN STOPPED BY [facility] IN PREP FOR SURGERY PATIENT DEEMED TOO HIGH RISK FOR SURGERY HERE WILL BE REFERRED TO [facility] FOR EVALUATIONS DS: Diagnosis - Discharge Diagnosis (1) Hypertension Status: Chronic (2) ACS (acute coronary syndrome) Status: Acute (3) COPD (chronic obstructive pulmonary disease) Status: Chronic (4) Severe mitral regurgitation Status: Chronic (5) Thoracic aortic aneurysm without rupture Status: Chronic DS: Medications - Discharge Medications Prescriptions: sennosides-docusate sodium [Senna Plus] 1 tab PO BID #60 tab DS: Summary Hospital Course: Chief Complaint: CHEST PAIN History of Present Illness: Patient is a 78-year-old female who presented to the emergency department at [facility] via private transport under the care of her granddaughter who is her healthcare surrogate and power of securities attorney for evaluation of retrosternal chest pain radiating into her back. Patient had similar chest pain in the past and had taken nitroglycerin with symptom relief. Patient's primary leather coverer is Dr. Boo can [facility]. Patient previously undergone cardiac catheterization [facility]. Patient also has a known history of thoracic aortic aneurysm which is nonsurgical at this time. Has a history of COPD and emphysema also. Symptoms began on Thursday night persisted nonproductive cough without any associated fever chills had some chest pain after forceful coughing. Patient has history of osteoporosis and rheumatoid arthritis also. Has had pain with movement as well as pain with resting. Granddaughter report history of cardiac valvular heart disease as well as thoracic aortic aneurysm and rheumatoid arthritis and dyslipidemia and GERD. Denies any recent trauma other than coughing. Patient has nitroglycerin at home but did not take it for chest pain prior to arrival patient does not use oxygen at home for her COPD emphysema. Patient recently moved to the area from [facility]. Her chest pain was 8 out of 10 and was tightness and aching and dullness with intermittent and progressive worsening of the chest pain. Patient denies any recent illness, recent surgery, recent [facility] home or new injury. Denies any new medications. Patient denies any history of DVT or pulmonary embolism. Has had some nausea on and off denies any dyspnea and some cough denies any vomiting denies any diaphoresis or impending doom denies any syncope or palpitation denies any fever or leg swelling denies any treatment prior to arrival. Has been seen by cardiology. Already had a HAYLEY, I believe which showed severe mitral valve issues. Troponins have remained negative here. Family history is unobtainable from the patient unfortunately 10-24 DW RN AND PT AND FAMILY CLEARED BY CARDIO NEEDS TAVR CT OF CHEST NEEDS TO WEAN OFF OXYGEN OR MAY NEED HOME OXYGEN WALK TEST DW RN AND PT AND FAMILY PREDNISONE AND METHOTREXATE HAVE BEEN STOPPED [facility] PREP FOR SURGERY PATIENT DEEMED TOO HIGH RISK FOR SURGERY HERE WILL BE REFERRED TO [facility] FOR EVALUATIONS - Time Spent with Patient Total time spent providing and/or coordinating discharge services: Greater than 30 minutes Exam Vital signs: Vital Signs 05/25/18 17:00 05/25/18 17:15 05/25/18 18:00 Temperature Pulse Rate 87 90 Respiratory Rate Blood Pressure Pulse Oximetry 96 Pulse Oximetry [Exertion on Room Air] Pulse Oximetry [Resting with Oxygen] 05/25/18 19:00 05/25/18 20:00 05/25/18 21:00 Temperature 98.6 F Pulse Rate 92 H 90 86 Respiratory Rate 16 Blood Pressure 115/58 L Pulse Oximetry 96 Pulse Oximetry [Exertion on Room Air] Pulse Oximetry [Resting with Oxygen] 05/25/18 22:00 05/25/18 23:00 05/26/18 00:00 Temperature 98.3 F Pulse Rate 80 72 72 Respiratory Rate 16 Blood Pressure 87/50 L Pulse Oximetry 96 Pulse Oximetry [Exertion on Room Air] Pulse Oximetry [Resting with Oxygen] 05/26/18 01:00 05/26/18 02:00 05/26/18 03:00 Temperature 97.9 F Pulse Rate 78 72 78 Respiratory Rate 16 Blood Pressure 103/56 L Pulse Oximetry 94 L Pulse Oximetry [Exertion on Room Air] Pulse Oximetry [Resting with Oxygen] 05/26/18 04:00 05/26/18 05:00 05/26/18 06:00 Temperature Pulse Rate 81 85 82 Respiratory Rate Blood Pressure Pulse Oximetry Pulse Oximetry [Exertion on Room Air] Pulse Oximetry [Resting with Oxygen] 05/26/18 07:00 05/26/18 08:00 05/26/18 09:00 Temperature 97.4 F L Pulse Rate 89 82 86 Respiratory Rate 18 Blood Pressure 93/54 L Pulse Oximetry 95 96 Pulse Oximetry [Exertion on Room Air] Pulse Oximetry [Resting with Oxygen] 05/26/18 10:00 05/26/18 10:50 05/26/18 10:51 Temperature Pulse Rate 82 Respiratory Rate Blood Pressure Pulse Oximetry 98 Pulse Oximetry [Exertion on Room Air] 98 Pulse Oximetry [Resting with Oxygen] 99 05/26/18 11:00 05/26/18 12:00 05/26/18 13:00 Temperature 98.0 F Pulse Rate 73 82 78 Respiratory Rate 18 Blood Pressure 86/52 L Pulse Oximetry 95 Pulse Oximetry [Exertion on Room Air] Pulse Oximetry [Resting with Oxygen] 05/26/18 14:00 05/26/18 15:00 Temperature 98.2 F Pulse Rate 80 95 H Respiratory Rate 18 Blood Pressure 92/52 L Pulse Oximetry 95 Pulse Oximetry [Exertion on Room Air] Pulse Oximetry [Resting with Oxygen] Intake & Output 05/25/18 05/26/18 05/26/18 18:59 06:59 18:59 Intake Total 493.7 / 493.7 480 / 480 Output Total 300 / 300 600 / 600 Balance 193.7 / 193.7 -120 / -120 Weight 46.8 kg Intake: IV 13.7 / 13.7 Heparin/D5W 25,000 U/250 mL 25, 13.7 / 13.7 000 unit In 250 ml @ Per Protocol IV.CONT TITRATE PRN Rx #:[id number] Oral 480 / 480 480 / 480 Output: Urine 300 / 300 600 / 600 Other: # Voids 1 Date of Last Bowel Movement 05/24/18 05/24/18 Narrative: Awake alert and oriented x3 talkative and cooperative GENERAL: Well-developed well-nourished. In no acute distress. Eyes PERRLA EOMI no scleral icterus Oral mucosa is moist tongue is midline NECK: No carotid bruits. No JVD. Supple CARDIOVASCULAR: Regular rate and rhythm. 3/6 diastolic murmur appreciated at the lower left sternal border. Pectus excavatum. Chest wall pain to palpation. RESPIRATORY: No accessory muscle use. Clear to auscultation. Breath sounds equal bilaterally. Decreased breath sounds bilaterally MUSCULOSKELETAL: No clubbing or cyanosis. No edema. Right groin access site with intact pulse and no swelling, ecchymosis, or tenderness. NEUROLOGICAL: Awake and alert. Normal speech. Insight and judgment is good Mood and behavior somewhat appropriate Results Procedures completed during hospitalization: HAYLEY and cardiac catheterization Date of procedure: 05/25/18 Pre-op diagnosis: Mitral regurgitation, preoperative evaluation Procedure: Procedure performed: 1. Fluoroscopy with interpretation 2. Coronary angiography 3. Right heart catheterization 4. Left heart catheterization 5. Left ventriculography Methods: Risks benefits, alternatives were discussed with the patient. Patient understood consented to the procedure. Patient was brought into the catheterization lab place in the catheterization table. Right groin was prepped and draped in sterile fashion. Right groin was anesthetized with 2% lidocaine. Right femoral vein was accessed and a 7 Singaporean 11 cm sheath was placed without difficulty. Right femoral artery was accessed and a 4 Singaporean 11 cm sheath was placed without difficulty. Left heart catheterization: Intraventricular hemodynamics measured at 152/43 mmHg. There was a 80 mmHg trans-ventricular pullback gradient across the mid cavitary obstruction due to hypertrophy with hyperdynamic LV function. Left ventriculography: 4 Singaporean angled pigtail catheter was advanced into the left ventricle apex. 36 cc contrast injection was administered. Left ventricular ejection fraction 75% with mid cavitary obstruction. There was 4+ mitral regurgitation with severely dilated left atrium and pulmonary vein visualization. Left atrial appendage was also visualized. Right heart catheterization: 1. Right atrium 17 mmHg 2. Right ventricle 43/7 mmHg 3. Pulmonary cavity wedge pressure 27 mmHg 4. Cardiac output 3.3 L/min 5. Cardiac index 2.1 L/min/m Coronary angiography: 1. Left main coronary is angiographically normal 2. Left anterior descending coronary has mild luminal irregularities throughout the mid segment. Diagonal branch has moderate disease estimated at 40%. 3. Left circumflex has minor luminal irregularities. 4. Right Cordis dominant vessel gives rise to the posterior descending branch. Right coronary has mild luminal irregularities. Conclusions: 1. Severe mitral regurgitation 2. Hyperdynamic left ventricular systolic function 3. Mild nonobstructive coronary disease Plan: We will consult cardiothoracic surgery. We will determine if patient may be candidate for minimally invasive approach to mitral valve repair or replacement. Documented By: William Shaikh MD 05/25/18 1129 Signed By: <Electronically signed by William Shaikh MD> 05/25/18 1151 CARDIOLOGY REPORT - Continued Ordered By: Karlo KILGORE MR#: [id number] : 1940 Attended By: Kai Morales DO Loc: [facility] Age: 78 Copy To: Donovan Burnette MD Pt Name: Monique Quick Bed: 452-A Order #: [id number] Page 3 of 3 Signed Report #:[id number] Provider [facility] [address] [id number] [place] [id number] Ordered By: Karlo KILGORE MR#: [id number] : 1940 Attended By: Kai Morales DO Loc: [facility] Age: 78 Copy To: Donovan Burnette MD Bed: 452-A Order #: [id number] Page 1 of 1 Signed Report #:[id number] Provider Indication: CHEST PAIN, MR CONCLUSIONS Normal left ventricular size. Dftafzzh-da-gzstep concentric left ventricular hypertrophy with mid cavitary obstruction due to hyperdynamic function. The left ventricular systolic function is normal with an estimated ejection fraction in the range of 60-65%. No regional wall motion abnormalities are present. Doppler parameters are consistent with impaired left ventricular relaxtion ( grade 1 diastolic dysfunction). The left atrial size is moderately dilated. Mild thickening of the mitral valve leaflets. Calcification of both mitral valve leaflets. Azzwqhfn-hg-cbiphi mitral valve regurgitation. Blunted (decreased) systolic pulmonary venous flow is noted which is consistent with hemodynamically significant mitral regurgiation. Mitral annular calcification is present. Mild thickening of the tricuspid valve leaflets. There is mild tricuspid valve regurgitation. Mild pulmonary valve regurgitation. Trileaflet aortic valve. Aortic valve sclerosis is present. Diffuse calcification of the aortic valve. Erzn-gr-shtkcihp aortic valve regurgitation. Eccentric aortic regurgitation jet directed at the mitral valve. No aortic valve stenosis. BP: / HR: Rhythm: Technical Quality: Medications Complications Proc. Components FINDINGS LEFT VENTRICLE Normal left ventricular size. Nqwvwluc-cd-vrxxdj concentric left ventricular hypertrophy with mid cavitary obstruction due to hyperdynamic function. The left ventricular systolic function is normal with an estimated ejection fraction in the range of 60-65%. No regional wall motion abnormalities are present. Doppler parameters are consistent with impaired left ventricular relaxtion ( grade 1 diastolic dysfunction). RIGHT VENTRICLE Normal right ventricular size and systolic function. LEFT ATRIUM The left atrial size is moderately dilated. RIGHT ATRIUM The right atrial size is normal. ATRIAL APPENDAGES Normal left atrial appendage size with no evidence of thrombus formation. ATRIAL SEPTUM Normal atrial septal thickness without atrial level shunting by limited color doppler interrogation. AORTA The aortic root and proximal ascending aorta are normal in size on limited imaging. There is plaque seen in the transverse aorta. MITRAL VALVE Mild thickening of the mitral valve leaflets. Calcification of both mitral valve leaflets. Dsqnjumt-lb-gfkluq mitral valve regurgitation. Blunted (decreased) systolic pulmonary venous flow is noted which is consistent with hemodynamically significant mitral regurgiation. Mitral annular calcification is present. AORTIC VALVE Trileaflet aortic valve. Aortic valve sclerosis is present. Diffuse calcification of the aortic valve. Aswo-bz-hbuuvujl aortic valve regurgitation. Eccentric aortic regurgitation jet directed at the mitral valve. No aortic valve stenosis. TRICUSPID VALVE Mild thickening of the tricuspid valve leaflets. There is mild tricuspid valve regurgitation. VESSELS The inferior vena cava is normal in size. PULMONARY VALVE Mild pulmonary valve regurgitation. PERICADIUM No pericardial effusion. William Shaikh MD, FACC (Electronically Signed) Final Date:25 May 2018 10:35 Amended: 25 May 2018 11:22 Completed studies during hospitalization: Laboratory Results CBC w Diff Auto diff final 05/25/18 01:30 WBC 6.1 th/mm3 (4.0-11.0) 05/26/18 05:15 RBC 3.45 mil/mm3 (4.00-5.30) L 05/26/18 05:15 Hgb 11.3 gm/dL (11.6-15.3) L 05/26/18 05:15 Hct 33.5 % (35.0-46.0) L 05/26/18 05:15 MCV 97.0 fL (80.0-100.0) 05/26/18 05:15 MCH 32.8 pg (27.0-34.0) 05/26/18 05:15 MCHC 33.8 % (32.0-36.0) 05/26/18 05:15 RDW 15.4 % (11.6-17.2) 05/26/18 05:15 Plt Count 92 th/mm3 (150-450) L 05/26/18 05:15 MPV 11.0 fL (7.0-11.0) 05/26/18 05:15 Prelim Diff (Auto) Slide review pending 05/26/18 05:15 Neut % (Auto) 73.6 % (16.0-70.0) H 05/26/18 05:15 Lymph % (Auto) 17.7 % (9.0-44.0) 05/26/18 05:15 [place] % (Auto) 5.9 % (0.0-8.0) 05/26/18 05:15 Eos % (Auto) 1.8 % (0.0-4.0) 05/26/18 05:15 Baso % (Auto) 1.0 % (0.0-2.0) 05/26/18 05:15 Neut # (Auto) 4.5 th/mm3 (1.8-7.7) 05/26/18 05:15 Lymph # (Auto) 1.1 th/mm3 (1.0-4.8) 05/26/18 05:15 [place] # (Auto) 0.4 th/mm3 (0.0-0.9) 05/26/18 05:15 Eos # (Auto) 0.1 th/mm3 (0.0-0.4) 05/26/18 05:15 Baso # (Auto) 0.1 th/mm3 (0.0-0.2) 05/26/18 05:15 WBC Differential . 05/26/18 05:15 Diff Scan Auto diff confirmed 05/26/18 05:15 Differential Comment . 05/26/18 05:15 Platelet Estimate Low (Normal) L 05/26/18 05:15 Platelet Morphology Normal (Normal) 05/26/18 05:15 Ovalocytes 1+ (None) H 05/26/18 05:15 PT 10.1 sec (9.8-11.6) 05/25/18 01:30 INR 1.0 Ratio 05/25/18 01:30 APTT 26.4 sec (24.3-30.1) D 05/25/18 12:07 Sodium 142 meq/L (136-145) 05/26/18 05:15 Potassium 3.9 meq/L (3.5-5.1) 05/26/18 05:15 Chloride 109 meq/L (98-107) H 05/26/18 05:15 Carbon Dioxide 27.1 meq/L (21.0-32.0) 05/26/18 05:15 Anion Gap 6 meq/L (5-15) 05/26/18 05:15 BUN 16 mg/dL (7-18) 05/26/18 05:15 Creatinine 0.61 mg/dL (0.50-1.00) 05/26/18 05:15 Estimated GFR Greater than 89 mL/min (>89) 05/26/18 05:15 Random Glucose 91 mg/dL (74-106) 05/26/18 05:15 Hemoglobin A1c 4.8 % (4.3-6.0) 05/25/18 15:30 Calcium 7.8 mg/dL (8.5-10.1) L 05/26/18 05:15 Magnesium 2.1 mg/dL (1.5-2.5) 05/25/18 01:30 Total Bilirubin 1.0 mg/dL (0.2-1.0) 05/25/18 01:30 AST 29 U/L (15-37) 05/25/18 01:30 ALT 23 U/L (10-53) 05/25/18 01:30 Alkaline Phosphatase 94 U/L (45-117) 05/25/18 01:30 Total Creatine Kinase 30 U/L (26-192) 05/25/18 12:46 Troponin I 0.09 ng/mL (0.02-0.05) H 05/25/18 12:46 B-Natriuretic Peptide 1102 pg/mL (0-100) H 05/25/18 01:30 Total Protein 6.9 g/dL (6.4-8.2) 05/25/18 01:30 Albumin 3.6 g/dL (3.4-5.0) 05/25/18 01:30 Nasal Screen MRSA (PCR) Not detected (Negative) 05/25/18 15:10 Blood Type A Negative 05/25/18 04:20 Antibody Screen Negative 05/25/18 04:20 Impressions Chest X-Ray 05/25/18 01:29 CONCLUSION: No acute abnormality is seen. The lungs are hyperinflated. Thoracic Aorta CT 05/25/18 02:07 CONCLUSION: 1. Scattered atherosclerotic calcification seen throughout. There is a 4.3 cm aneurysm of the ascending aorta. No dissection is seen. 2. There are prominent pectus excavatum deformity deforming the chest and displacing the heart to the left. 3. Calcified masses in the right lung. The likely from granulomatous exposure. 4. Dilatation the biliary system which may reflect a reservoir phenomenon following cholecystectomy. 5. Dilatation of pancreatic duct. Because this is not known. It is likely long- standing as there does appear to be some atrophy of the pancreas. 6. Dilatation the renal collecting systems bilaterally being more prominent on the right to the level the UPJs which could suggest underlying UPJ type obstruction. There is no delayed enhancement of the kidneys. No renal stones are seen. 7. Scattered colonic diverticula. Carotid Doppler Study 05/25/18 14:38 CONCLUSION: 1. Right Internal Carotid Artery: Mild atherosclerotic plaquing with no sonographic or Doppler findings of a hemodynamically significant stenosis 2. Left Internal Carotid Artery: Mild atherosclerotic plaquing with no sonographic or Doppler findings of a hemodynamically significant stenosis. 3. Antegrade flow in both vertebral arteries. Labs on day of discharge: Labs from last 24 hours 05/26/18 05/26/18 05/25/18 05:15 05:15 15:30 WBC 6.1 RBC 3.45 L Hgb 11.3 L Hct 33.5 L MCV 97.0 MCH 32.8 MCHC 33.8 RDW 15.4 Plt Count 92 L MPV 11.0 Prelim Diff (Auto) Slide review pending Neut % (Auto) 73.6 H Lymph % (Auto) 17.7 [place] % (Auto) 5.9 Eos % (Auto) 1.8 Baso % (Auto) 1.0 Neut # (Auto) 4.5 Lymph # (Auto) 1.1 [place] # (Auto) 0.4 Eos # (Auto) 0.1 Baso # (Auto) 0.1 WBC Differential . Diff Scan Auto diff confirmed Differential Comment . Platelet Estimate Low L Platelet Morphology Normal Ovalocytes 1+ H Sodium 142 Potassium 3.9 Chloride 109 H Carbon Dioxide 27.1 Anion Gap 6 BUN 16 Creatinine 0.61 Estimated GFR Greater than 89 Random Glucose 91 Hemoglobin A1c 4.8 Calcium 7.8 L Nasal Screen MRSA (PCR) 05/25/18 15:10 WBC RBC Hgb Hct MCV MCH MCHC RDW Plt Count MPV Prelim Diff (Auto) Neut % (Auto) Lymph % (Auto) [place] % (Auto) Eos % (Auto) Baso % (Auto) Neut # (Auto) Lymph # (Auto) [place] # (Auto) Eos # (Auto) Baso # (Auto) WBC Differential Diff Scan Differential Comment Platelet Estimate Platelet Morphology Ovalocytes Sodium Potassium Chloride Carbon Dioxide Anion Gap BUN Creatinine Estimated GFR Random Glucose Hemoglobin A1c Calcium Nasal Screen MRSA (PCR) Not detected - Impressions ITS Impressions Chest X-Ray 05/25/18 01:29 CONCLUSION: No acute abnormality is seen. The lungs are hyperinflated. Thoracic Aorta CT 05/25/18 02:07 CONCLUSION: 1. Scattered atherosclerotic calcification seen throughout. There is a 4.3 cm aneurysm of the ascending aorta. No dissection is seen. 2. There are prominent pectus excavatum deformity deforming the chest and displacing the heart to the left. 3. Calcified masses in the right lung. The likely from granulomatous exposure. 4. Dilatation the biliary system which may reflect a reservoir phenomenon following cholecystectomy. 5. Dilatation of pancreatic duct. Because this is not known. It is likely long- standing as there does appear to be some atrophy of the pancreas. 6. Dilatation the renal collecting systems bilaterally being more prominent on the right to the level the UPJs which could suggest underlying UPJ type obstruction. There is no delayed enhancement of the kidneys. No renal stones are seen. 7. Scattered colonic diverticula. Carotid Doppler Study 05/25/18 14:38 CONCLUSION: 1. Right Internal Carotid Artery: Mild atherosclerotic plaquing with no sonographic or Doppler findings of a hemodynamically significant stenosis 2. Left Internal Carotid Artery: Mild atherosclerotic plaquing with no sonographic or Doppler findings of a hemodynamically significant stenosis. 3. Antegrade flow in both vertebral arteries. Discharge Plan - Discharge Disposition Patient Disposition: 01 Discharge Home - Discharge Condition Condition: Stable - Discharge Order Discharge Orders: Discharge Order (Routine); Ordered 05/26/18 Ordered By: Kai Morales Cardiology Clear for Discharge (Routine); Ordered 05/26/18 Ordered By: William Shaikh - Discharge Details Anticipated Discharge Date: 05/26/18 Discharge Comment: DC TO HOME TODAY - Physicians Team Primary Care Provider: Donovan Burnette Attending Provider: Kai Morales Other Providers: William Shaikh MD ; Elizabeth Barksdale MD ; Ines Chacon
[2018-05-26 16:13] VITALS: PULSE 80
--- NOTE | 2018-05-27 01:24 | ECG ---
Date Performed: 05/25/2018 Time Performed: 06:42:31 PTAGE: 78 years EKG: Sinus rhythm WITH MARKED SINUS ARRHYTHMIA POSSIBLE LEFT ATRIAL ENLARGEMENT POSSIBLE RIGHT VENTRICULAR CONDUCTION DELAY LEFT ANTERIOR FASCICULAR BLOCK LEFT VENTRICULAR HYPERTROPHY AND ST-T CHANGE ABNORMAL ECG PREVIOUS TRACING : 05/25/2018 04.14 Since the previous tracing, no significant change noted DOCTOR: Yovany Elliott Interpretating Date/Time 05/27/2018 01:23:11
--- NOTE | 2018-05-27 01:27 | ECG ---
Date Performed: 05/25/2018 Time Performed: 04:14:58 PTAGE: 78 years EKG: Sinus rhythm WITH SINUS ARRHYTHMIA POSSIBLE LEFT ATRIAL ENLARGEMENT INTRAVENTRICULAR CONDUCTION DELAY LEFT VENTRI CULAR HYPERTROPHY AND ST-T CHANGE POSSIBLE ANTERIOR MYOCARDIAL INFARCTION ABNORMAL ECG PREVIOUS TRACING : 05/25/2018 01.35 Since the previous tracing, no significant change noted DOCTOR: Yovany Elliott Interpretating Date/Time 05/27/2018 01:26:28
--- NOTE | 2018-05-27 01:28 | ECG ---
Date Performed: 05/25/2018 Time Performed: 01:35:55 PTAGE: 78 years EKG: Sinus rhythm WITH MARKED SINUS ARRHYTHMIA INTRAVENTRICULAR CONDUCTION DELAY LEFT VENTRICULAR HYPERTROPHY AND ST-T CHANGE POSSIBLE LATERAL MYOCARDIAL INFARCTION ABNORMAL ECG NO PREVIOUS TRACING DOCTOR: Yovany Elliott Interpretating Date/Time 05/27/2018 01:28:36
--- NOTE | 2018-05-27 11:00 | CT ---
EXAM DATE: 05/26/2018 12:17 PM EDT AGE/SEX: 78 years / Female INDICATIONS: Possible cardiac valve replacement. CLINICAL DATA: This is the patient's subsequent encounter. Patient reports that signs and symptoms h ave been present for 2 weeks and indicates a pain score of 0/10. MEDICAL/SURGICAL HISTORY: Congestive heart failure. Chronic obstructive pulmonary disease. Hypert ension. Mitral regurgitation Appendectomy. Cholecystectomy. Tonsillectomy. RADIATION DOSE: 42.08 CTDI (mGy) COMPARISON: HPO, CTA THOR ABD AORTA W CONTRAST W 3D, 05/25/2018. . TECHNIQUE: Volumetric scanning was performed using a multi-row detector CT scanner during bolus infu ry of 87 ml Omnipaque 350 (iohexol) nonionic water-soluble contrast as a single exam dose. The da ta was post processed with a variety of visualization algorithms including full volume maximum intens ity projection, multi-planar sliding thin slab reformation, curved planar reformation, and surface re ndering techniques. Using automated exposure control and adjustment of the mA and/or kV according to patient size, radiation dose was kept as low as reasonably achievable to obtain optimal diagnostic q uality images. DICOM format image data is available electronically for review and comparison. FINDINGS: CARDIAC: The coronary system is right dominant. Minimal atherosclerotic disease. The right coronary artery is quite tortuous making a complete loop in the midportion of the vessel. There is no pericar dial effusion AORTIC ROOT/VALVE: 3 cusps are evident with minimal calcifications. The aortic root measures 3.4. Mid thoracic aorta measures 4.2 with no calcifications. THORACIC AORTA: The thoracic aortic root is normal with normal branching of the great vessels. A bang cending thoracic aorta is aneurysmal at 4.2 cm. Descending thoracic aorta is normal at 2.7 cm. ABDOMINAL AORTA: The aorta is normal in caliber without aneurysm or dissection. The renal arteries are patent bilaterally. The proximal celiac and superior mesenteric arteries are patent and normal i n diameter. CELIAC ARTERY: Celiac artery is widely patent. SMA: Superior mesenteric artery is widely patent. RIGHT RENAL ARTERY: Right renal artery is widely patent. LEFT RENAL ARTERY: Left renal artery is widely patent. RIGHT COMMON ILIAC: No evidence of aneurysm, mural thrombus, dissection, mural calcification, or pebbles nosis. The common femoral measures 7.5 mm. LEFT COMMON ILIAC: No evidence of aneurysm, mural thrombus, dissection, mural calcification, or sten osis. The common femoral measures 8.3 mm. 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 Again, this may be contributing to the tortuosity of the right coronary . There is a 2 cm partially calcified nodule superior segment of the right lower lobe which is probab ly granulomatous. Lungs are otherwise clear ABDOMEN: Patient is status post cholecystectomy. CBD measures 8.4 cm in the pancreatic head probably representing a reservoir effect associated with prior cholecystectomy. Pancreatic duct is prominent at 5.7 mm but there is no centrally obstructing mass lesion. Extensive diverticular disease throughou t the colon, most severe in the sigmoid without diverticulitis. There is dense calcification of the m itral valve annulus PELVIS: Marked diverticular disease of the sigmoid without diverticulitis. CONCLUSION: 1. A single thoracic aorta is mildly aneurysmal at 4.2 cm. The aortic root is normal in caliber at 3 .4 cm. Descending thoracic aorta and abdominal aorta are all normal in diameter as well. 2. Minimal calcification of the aortic valve with dense calcification of the mitral valve annulus. 3. 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 This may explain some of the tortuosity of the right coronary artery which a ppears to make a complete loop in the mid vessel. 4. 2 cm partially calcified mass lesion in the superior segment of the right lower lobe is probably granulomatous in nature. 5. Prominent CBD probably representing a reservoir effect associated with prior cholecystectomy. Oshea creatic duct remains prominent as well. Etiology is uncertain. 6. Diverticular disease throughout the colon, most severe in the sigmoid without diverticulitis. Electronically signed by: Luis Miguel Stokes MD 05/27/2018 10:59 AM EDT
== END 2018-05-26 16:35 | disposition home or self-care (01) ==
LOC: PHED 01:06 → PHEDA 04:24 → HCPC 08:16
PROVIDERS: ADMIT Hospitalist; ATTEND Hospitalist